=== PATIENT | male | born 1985 | race Caucasian/White ===

== ENCOUNTER 2016-10-09 09:55 | Outpatient (CLI) ==
[2016-10-04 11:55] VITALS: BMI 48.9
--- NOTE | 2016-10-09 10:40 | CT ---
EXAM: CT Abdomen without contrast. CT Pelvis without contrast. HISTORY: Upper abdominal pain. Fever. COMPARISON: 09/01/2016. TECHNIQUE: Multiple axial images of the abdomen and pelvis were obtained without intravenous contra st. Images were reformatted in the coronal plane. FINDINGS: Please note that evaluation of the abdominal and pelvic structures is limited due to lack of intravenous contrast. Lung bases are clear. No acute osseous abnormality identified. The liver is enlarged and diffusely low density. The gallbladder, pancreas, spleen, and adrenal gla nds demonstrate normal contour. No calcified renal stones, hydronephrosis or perinephric inflammati on identified. The bowel is normal in course and caliber without evidence for obstruction or inflammatory process. The appendix is normal. Diverticula are present in the colon. Fat-containing umbilical hernia is present. Urinary bladder is unremarkable. Uterus is absent. Small fat-containing left inguinal he rnia noted. IMPRESSION: 1. No acute abnormality in the abdomen or pelvis. 2. Hepatomegaly with fatty infiltration. 3. Mild diverticulosis. 4. Containing umbilical hernia.
[2016-10-09 10:59] LABS: ALBUMIN 3.9 g/dL (3.4-5.0); ALBUMIN/GLOBULIN RATIO 1.22; ANION GAP 14.8; BILIRUBIN,TOTAL 0.51 mg/dL (0.00-1.20); BUN/CREATININE RATIO 18.97; CALCIUM 9.3 mg/dL (8.2-10.2); CREATININE 1.37 mg/dL (0.60-1.10); POTASSIUM 4.8 mmol/L (3.5-5.1); TOTAL PROTEIN 7.1 g/dL (6.4-8.2)
[2016-10-10 14:24] LABS: ANTI-NUCLEAR ANTIBODY SCREEN Negative (Negative)
== END 2016-10-09 09:56 | disposition home or self-care (01) ==
LOC: RAD 09:55
PROVIDERS: ATTEND Nurse Practitioner Family
DX: R50.9 Fever, unspecified (principal); R10.84 Generalized abdominal pain; R19.7 Diarrhea, unspecified
CPT/HCPCS: 36415; 80053; 80074; 82150; 83690; 86038; 86664

== ENCOUNTER 2016-12-09 09:59 | Day surgery (SDC) ==
[2016-10-04 11:55] VITALS: BMI 48.9
[2016-12-09] MEDS ORDERED: LIDOCAINE 1% 20 ML MDV ONE (10:15)
[2016-12-09] MEDS ORDERED: LIDOCAINE 1% 20 ML MDV ID ONE (10:15)
[2016-12-09] MEDS ORDERED: LIDOCAINE HCL 2% LUER-JET ONE (10:25)
[2016-12-09] MEDS ORDERED: VERSED ONE (10:25)
[2016-12-09] MEDS ORDERED: DIPRIVAN 20 ML VIAL IVP ONE (10:25)
[2016-12-09] MEDS ORDERED: SUBLIMAZE ONE (10:25)
[2016-12-09 11:21] VITALS: BP 116/70; TEMP 98.1
--- NOTE | 2016-12-10 10:08 | OP ---
PROCEDURE: EGD (ESOPHAGOGASTRODUODENOSCOPY) WITH BIOPSY. ENDOSCOPIST: Erin BOLTON M.D. INDICATION: Midupper gastric pain INSTRUMENT: GIFH-190. MEDICATION: PER ANESTHESIA. PROCEDURE: The patient was positioned for endoscopy. The oropharynx was sprayed with Cetacaine spray and the endoscope was advanced through the bite block into the esophagus and from there advanced to the duodenum. The duodenum was normal. The pylorus was patent. The antrum is normal. We took biopsies Helicobacter. Retro flex exam reveals normal cardiac. The Z-line was at 40cm. The esophagus with otherwise normal. He tolerated the procedure without immediate complication. PLAN: 1. Continue current medications. CC: Dr. Brittany BENJAMIN
--- NOTE | 2016-12-10 10:09 | OP ---
PROCEDURE: COLONOSCOPY TO CECUM WITH COLD SNARE POLYPECTOMY. ENDOSCOPIST: Erin BOLTON M.D. INDICATION: Blood from rectum. INSTRUMENT: PCFH-190. MEDICATION: PER ANESTHESIA. PROCEDURE: The patient was positioned for colonoscopy. The digital rectal exam was negative. The colonoscope was inserted through the anus and advanced to the cecum. The cecum was identified using the ileocecal valve and the appendiceal orifice as landmarks. The scope was slowly withdrawn through an adequately prepped colon. In the transverse colon a 5mm polyp is removed using cold snare polypectomy. No evidence for diverticulitis on this exam. Retroflex exam with minimal external hemorrhoids. He tolerated the procedure without immediate complication. Withdrawal time 6 minutes and 12 seconds. PLAN: 1. Suggest repeat colonoscopy in 5 years CC: Dr. Brittany BENJAMIN
== END 2016-12-09 11:40 | disposition home or self-care (01) ==
LOC: SURG 09:59
PROVIDERS: ATTEND Internal Medicine Gastroenterology
DX: K62.5 Hemorrhage of anus and rectum (principal); R10.10 Upper abdominal pain, unspecified; D12.3 Benign neoplasm of transverse colon; K64.4 Residual hemorrhoidal skin tags; E11.9 Type 2 diabetes mellitus without complications
CPT/HCPCS: 82962; 87339

== ENCOUNTER 2017-02-14 10:12 | Outpatient (CLI) ==
[2016-10-04 11:55] VITALS: BMI 48.9
[2017-02-14 10:33] LABS: BASOPHILS % (AUTO) 0.4 % (0.0-3.0); EOSINOPHILS # (AUTO) 0.4 K/ul (0.0-0.7); EOSINOPHILS % (AUTO) 4.9 % (0.0-7.0); HEMATOCRIT 38.9 % (42.0-52.0); HEMOGLOBIN 13.2 g/dl (14.0-18.0); IMMATURE GRANULOCYTE % (AUTO) 0.3 % (0.0-5.0); LYMPHOCYTES # (AUTO) 1.4 K/uL (0.60-3.4); MEAN CORPUSCULAR HEMOGLOBIN 29.4 pg (27.0-31.0); MEAN CORPUSCULAR HGB CONC 33.9 (31.8-35.4); MEAN CORPUSCULAR VOLUME 86.6 fl (80.0-94.0); MONOCYTES # (AUTO) 0.4 K/uL (0.4-2.0); NEUTROPHILS # (AUTO) 4.9 K/ul (2.0-6.9); NEUTROPHILS % (AUTO) 69.4; PLATELET COUNT 217 10^3/uL (140-440); RED BLOOD COUNT 4.49 10^6/ul (4.70-6.10); WHITE BLOOD COUNT 7.11 K/ul (4.2-10.2)
[2017-02-14 11:02] LABS: ALBUMIN 3.5 g/dL (3.4-5.0); ALBUMIN/GLOBULIN RATIO 1.09; ANION GAP 10.1; BILIRUBIN,TOTAL 0.2 mg/dL (0.00-1.20); CALCIUM 8.9 mg/dL (8.2-10.2); CHOL/HDL RATIO 6.7 (4.5-6.4); POTASSIUM 4.1 mmol/L (3.5-5.1); TOTAL PROTEIN 6.7 g/dL (6.4-8.2)
== END 2017-02-14 10:13 | disposition home or self-care (01) ==
LOC: LAB 10:12
PROVIDERS: ATTEND Nurse Practitioner Family
DX: E11.9 Type 2 diabetes mellitus without complications (principal); E78.5 Hyperlipidemia, unspecified; E78.1 Pure hyperglyceridemia; I10 Essential (primary) hypertension; E66.9 Obesity, unspecified
CPT/HCPCS: 36415; 80053; 80061; 83036; 84443; 85025

== ENCOUNTER 2017-02-22 12:49 | Emergency (ER) ==
[2017-02-22 12:57] VITALS: TEMP 98.8; BMI 46.5
[2017-02-22 13:27] VITALS: BP 150/89
--- NOTE | 2017-02-22 14:03 | ED.PDOC ---
General ED Provider: Dr. YASMIN MADRID Chief Complaint: Tooth Problem Stated Complaint: Patient is a 31 year old c/o pain to left lower jaw. states he has a tooth that has broken off and thought it was abscessed so went to the clinic 02/14/16 and was placed on clindamycin. patient states yesterday started having more swelling around the tooth. Time Seen by Physician: 13:30 Mode of Arrival: Walk-In Information Source: Patient Exam Limitations: No limitations [facility] Nursing and Triage Documentation Reviewed and Agree: Yes EENT Complaint Exam - Dental/Oral Complaint/Exam Mechanism of Injury: No known trauma Onset/Duration: 1 week Symptoms Are: Still present Timing: Constant Initial Severity: Moderate Current Severity: Severe Location: Left lower jaw Character: Reports: Dull, Aching, Throbbing Aggravating: Reports: Heat, Cold, Chewing Alleviating: Reports: None Associated Signs and Symptoms: Reports: Swelling Related History: Reports: Similar episode Cardiac Risk Factors: Reports: None Dental/Oral Surgical History: Reports: Third Molar Extractions Tooth Findings: Present: Gross decay Cervical Lymphadenopathy Present: Yes (left ) Facial Swelling Present: Yes (left jaw ) Bleeding Present: No Oropharynx Findings: Absent: Clots, Active bleeding Septal Hematoma: No Foreign Body Present: No Dysphagia Present: No Drooling Present: No Asymmetrical Tonsillar Swelling Present: No Uvula Midline: No Alexandra-tonsillar Fluctuence: No Trismus Present: No Palatal Petechiae Present: No Teeth Picture: 1 - dental caries Differential Diagnoses: Dental Abcess, Dental Caries, Fractured Tooth, Gingivitis Review of Systems - Review Of Systems Constitutional: Reports: No symptoms Eyes: Reports: No symptoms Ears, Nose, Mouth, Throat: Reports: Mouth pain Respiratory: Reports: No symptoms Cardiac: Reports: No symptoms GI: Reports: No symptoms : Reports: No symptoms Musculoskeletal: Reports: No symptoms Skin: Reports: No symptoms Neurological: Reports: No symptoms Endocrine: Reports: No symptoms Hematologic/Lymphatic: Reports: No symptoms All Other Systems: Reviewed and Negative Past Medical History - Past Medical History Previously Healthy: Yes Endocrine: Reports: None Cardiovascular: Reports: Hypertension Respiratory: Reports: None Hematological: Reports: None Gastrointestinal: Reports: None Genitourinary: Reports: None Neuro/Psych: Reports: Depression Musculoskeletal: Reports: Gout Cancer: Reports: None Other Pertinent Past Medical History: obesity - Surgical History General Surgical History: Reports: Unknown - Family History Family History: Reports: Unknown - Social History Smoking Status: Former smoker Hx Substance Use: No Alcohol Screening: None Physical Exam - Physical Exam Appearance: Obese Pain Distress: Moderate Eyes: YONG, EOMI, Conjunctiva clear ENT: Ears normal, Nose normal, Oropharynx normal Neck: Supple Respiratory: Airway patent, Breath sounds clear, Breath sounds equal, Respirations nonlabored Cardiovascular: RRR, Pulses normal, No rub, No murmur Skin: Warm, Dry Psychiatric: Anxious Critical Care Note - Critical Care Note Total Time (mins): 0 Course - Course Vital Signs: Temp Pulse Resp BP Pulse Ox 02/22/17 13:27 150/89 H 02/22/17 12:50 98.8 F 67 16 160/108 H 96 Departure - Departure Time of Disposition: 14:02 Disposition: HOME SELF-CARE Discharge Problem: Toothache, Dental abscess Instructions: Dental Abscess (ED) Condition: Fair Pt referred to PMD for follow-up: Yes Additional Instructions: Keep APT with the Dentist. Follow up with PCP in 3 days if not better. Prescriptions: Doxycycline Hyclate 100 mg PO BID #14 capsule Allergies/Adverse Reactions: Allergies Penicillins Adverse Reaction (Verified 02/22/17 12:54) Sulfa (Sulfonamide Antibiotics) Adverse Reaction (Verified 02/22/17 12:54) Home Medications: Ambulatory Orders Multivitamin/Iron/Folic Acid [Multi Complete-Iron Tablet] 1 each PO d 08/15/16 Acetaminophen [Pain Relief Extra Strength] 500 - 1,000 mg PO Q6H PRN 09/01/16 Sumatriptan Succinate 50 mg PO BID PRN 10/04/16 Topiramate [Topamax] 100 mg PO BID 10/04/16 Hydrocodone/Acetaminophen [[place] 7.5-325 Tablet] 1 each PO TID 10/08/16 Allopurinol 20 mg PO BID 12/06/16 Omeprazole [Prilosec] 20 mg PO ONCE 12/06/16 Doxycycline Hyclate 100 mg PO BID #14 capsule 02/22/17 Disposition Discussed With: Patient, Family
== END 2017-02-22 14:17 | disposition home or self-care (01) ==
LOC: ED 12:49
DX: K04.7 Periapical abscess without sinus (principal); K02.7 Dental root caries; I10 Essential (primary) hypertension
CPT/HCPCS: 99282

== ENCOUNTER 2017-05-31 01:05 | Emergency (ER) ==
[2017-05-31 01:11] VITALS: BP 156/83; TEMP 98.1; BMI 47.9
--- NOTE | 2017-05-31 01:27 | ED.PDOC ---
General ED Provider: Dr. MICHELLE GOLDBERG-ER Chief Complaint: Eye Problem Stated Complaint: my eye is red and its draining yellow stuff Time Seen by Physician: 01:25 Mode of Arrival: Walk-In Information Source: Patient Exam Limitations: No limitations [facility] and Triage Documentation Reviewed and Agree: Yes EENT Complaint Exam - Eye Complaint/Exam Onset/Duration: 24hrs Symptoms Are: Still present Timing: Intermittent Initial Severity: Mild Current Severity: Mild Location: Right Character: Reports: Dull. Denies: Foreign body sensation Aggravating: Reports: None Alleviating: Reports: None Associated Signs and Symptoms: Reports: Purulent drainage. Denies: Photophobia , Clear drainage, Vision impairment, Fever, Swelling Related History: Denies: Foreign body, Trauma, Glaucoma, Environmental, Meds used, Drops used Eye Surgical History: Reports: None Penetrating Injury Risk Factors: None Globe Rupture Risk Factors: None Acute Glaucoma Risk Factors: Diabetes Optic Artery Occlusion Risk Factors: None Visual Field: Normal Extraocular Movement: Normal Orbit Findings: Normal Globe Findings: Intact Lid Findings: Normal Conjunctival Findings: Red, Exudate Corneal Findings: Clear Fundi: Normal Slit Lamp Used: No Differential Diagnoses: Conjunctivitis Review of Systems - Review Of Systems Constitutional: Reports: No symptoms Eyes: Reports: Drainage, Pain, Glasses. Denies: Contact lenses Ears, Nose, Mouth, Throat: Reports: No symptoms Respiratory: Reports: No symptoms Cardiac: Reports: No symptoms GI: Reports: No symptoms : Reports: No symptoms Musculoskeletal: Reports: No symptoms Skin: Reports: No symptoms Neurological: Reports: No symptoms Endocrine: Reports: No symptoms Hematologic/Lymphatic: Reports: No symptoms All Other Systems: Reviewed and Negative Past Medical History - Past Medical History Previously Healthy: Yes Endocrine: Reports: None Cardiovascular: Reports: Hypertension Respiratory: Reports: None Hematological: Reports: None Gastrointestinal: Reports: None Genitourinary: Reports: None Neuro/Psych: Reports: Depression Musculoskeletal: Reports: Gout Cancer: Reports: None Other Pertinent Past Medical History: obesity - Surgical History General Surgical History: Reports: Unknown - Family History Family History: Reports: Unknown - Social History Smoking Status: Former smoker Hx Substance Use: No Alcohol Screening: None Lives: With family - Immunizations Tetanus Shot up to Date: Yes Physical Exam - Physical Exam Appearance: Well-appearing, No pain distress, Well-nourished Eyes: Conjunctiva inflammed ENT: Ears normal, Nose normal, Oropharynx normal Neck: Supple Respiratory: Airway patent, Breath sounds clear, Breath sounds equal, Respirations nonlabored Cardiovascular: RRR, Pulses normal, No rub, No murmur GI/: Soft, Nontender, No masses, Bowel sounds normal, No Organomegaly Musculoskeletal: Normal strength Skin: Warm Neurological: Sensation intact Psychiatric: Affect appropriate, Mood appropriate Critical Care Note - Critical Care Note Total Time (mins): 0 Course - Course Vital Signs: Temp Pulse Resp BP Pulse Ox 05/31/17 01:06 98.1 F 78 20 156/83 H 97 Departure - Departure Time of Disposition: Disposition: HOME SELF-CARE Discharge Problem: Acute conjunctivitis Qualifiers: Acute conjunctivitis type: unspecified Laterality: right Qualifier Code: ( H10.31) Unspecified acute conjunctivitis, right eye Instructions: Conjunctivitis (ED) Condition: Good Pt referred to PMD for follow-up: Yes Additional Instructions: ciloxan eye drops 1 drop into the eye tid x 7days--warm washcloths q 2hrs as needed--see eye doctor if not better in 48hrs Allergies/Adverse Reactions: Allergies Penicillins Adverse Reaction (Unverified 05/31/17 01:11) Sulfa (Sulfonamide Antibiotics) Adverse Reaction (Unverified 05/31/17 01:11) Home Medications: Ambulatory Orders Multivitamin/Iron/Folic Acid [Multi Complete-Iron Tablet] 1 each PO d 08/15/16 Sumatriptan Succinate 50 mg PO BID PRN 10/04/16 Topiramate [Topamax] 100 mg PO BID 10/04/16 Hydrocodone/Acetaminophen [[place] 7.5-325 Tablet] 1 each PO TID 10/08/16 Omeprazole [Prilosec] 20 mg PO ONCE 12/06/16 Doxycycline Hyclate 100 mg PO BID #14 capsule 02/22/17 Disposition Discussed With: Patient
== END 2017-05-31 01:35 | disposition home or self-care (01) ==
LOC: ED 01:05
DX: H10.31 Unspecified acute conjunctivitis, right eye (principal)
CPT/HCPCS: 99282

== ENCOUNTER 2017-12-23 09:44 | Outpatient (CLI) | END 2017-12-23 09:45 | disposition home or self-care (01) | LOC: RHC-LAB 09:44 | PROVIDERS: ATTEND Nurse Practitioner Family | DX: E11.9 Type 2 diabetes mellitus without complications (principal); E78.1 Pure hyperglyceridemia; E78.5 Hyperlipidemia, unspecified; E66.9 Obesity, unspecified | CPT/HCPCS: 36415; 80053; 80061; 83036; 85025 ==

== ENCOUNTER 2017-12-25 08:59 | Outpatient (CLI) ==
--- NOTE | 2017-12-25 13:14 | MRI ---
EXAM: MRI of the right knee without contrast COMPARISON: Right knee radiographs 05/19/2008. HISTORY: Right knee pain and popping. No known injury. TECHNIQUE: Multiplanar noncontrast MR images of the right knee were acquired using a 1.2 Neida magne t. FINDINGS: Correlation with more recent radiographs of the right knee is recommended. The medial and lateral menisci are intact without evidence of a surfacing meniscal tear. No parameni scal cyst. The anterior and posterior cruciate ligaments are intact. There is some scarring related to a chroni c sprain of the medial collateral ligament at its femoral attachment with intact fibers identified. The lateral collateral ligament complex and posterolateral corner ligaments are intact. Minimal mo llar/quadriceps tendinosis. No abnormal subluxation of the patella. There is subcutaneous edema and ill-defined subcutaneous fluid which is most pronounced anteriorly and medially without a focal drai nable fluid collection. No discrete soft tissue ulcer identified. There is heterogeneous signal involving the cartilage of the patella consistent with chondromalacia p atella with mild thinning fibrillation of the cartilage and question of minimal blistering of the car tilage along the junction of the lateral facet median ridge. No full-thickness cartilage defect. No evidence of an acute fracture or osteomyelitis. Trace joint effusion. No popliteal cyst or osteoch ondral body. No soft tissue mass identified. IMPRESSION: 1. Chondromalacia/patellar chondrosis as described. 2. Trace joint effusion. 3. Intact menisci. 4. Minimal scarring related to a chronic sprain of the medial collateral ligament. 5. Minimal patellar/quadriceps tendinosis. Subcutaneous edema anteromedially without a drainable fl uid collection.
== END 2017-12-25 09:00 | disposition home or self-care (01) ==
LOC: RAD 08:59
PROVIDERS: ATTEND Nurse Practitioner Family
DX: M25.561 Pain in right knee (principal); R20.0 Anesthesia of skin; R29.898 Other symptoms and signs involving the musculoskeletal system

== ENCOUNTER 2018-03-03 08:03 | Outpatient (CLI) ==
--- NOTE | 2018-03-03 10:38 | MRI ---
EXAM: MRI thoracic spine without IV contrast. DATE: 03 Mar 2018. HISTORY: Thoracic back pain. TECHNIQUE: Sagittal and axial T2W and T1W sequences of the thoracic spine along with sagittal IR and coronal T2W sequences were obtained using 1.2 Neida magnet. No IV contrast. Note: Grainy appearance on most sequences significantly limits the sensitivity of this exam. COMPARISON: MRI T-spine 28 Feb 2016 and 02/14/2016. CT abdomen/pelvis 09 October 2016. FINDINGS: Sagittal counting estimator printing sequence of the cervical and upper thoracic spine reveals slight r eversal cervical lordosis. No acute c-spine fracture, subluxation, osseous malignancy, or jumped fac et is evident. Cervical vertebra are normal in height. Bone marrow signal is overall normal. No ce rvical disc protrusion, cord compression, or definitive central canal stenosis is observed. There is no Chiari 1 malformation. No distinct neck mass or cervical lymphadenopathy is demonstrated. There are 12 thoracic vertebra with paired ribs. There is no thoracic scoliosis. No acute T-spine fr acture, subluxation, osseous malignancy, or jumped facet is apparent. Thoracic vertebra are normal i n height. Small osteophytes are visible at the mid thoracic spine. Thoracic intervertebral discs ar e normal in height. Disc desiccation is evident at T8-9. Bone marrow signal is normal. Conus medul silvana terminates at L1. No definitive cord edema, neoplasm, or myelomalacia is seen. There is no de finitive syrinx; however, images are suboptimal to exclude a syrinx. No acute rib fracture, rib lesion, paraspinal mass, or chest wall malignancy is identified. Visible portion of the trachea, thyroid gland, thoracic esophagus, and thoracic aorta are normal. No suspici ous lung mass, pneumonia, or pleural effusion is detected. Visible portions of the liver, spleen, ad renal glands and kidneys are revealed no neoplasm. Right lobe liver is approximately 18.2 cm in josé manuel th. Spleen is approximately 14.4 cm in length. Segmental analysis: C7-T1: Normal. T1-2: Normal. T2-3: Normal. T3-4: Normal. T4-5: Tiny posterior midline disc protrusion (1 mm AP x 1 mm transverse) does not contact the cord o r cause central stenosis. Each foramen is patent. T5-6: Normal. T6-7: Normal. T7-8: Minor posterior disc bulge slightly flattens the cord anteriorly and causes mild central canal stenosis. T8-9: Minor posterior disc bulge does not contact the cord at rest, but does cause mild central judith l stenosis. Mild/moderate right foraminal narrowing is due to facet arthropathy. T9-10: Minor posterior disc bulge does not contact the cord at rest, but does cause mild central can al stenosis. Minor bilateral foraminal narrowing is due to minor facet arthropathy. T10-11: Normal, except for minor right and mild left foraminal stenoses due to mild facet arthropath y. T11-12: Normal, except for minor left foraminal narrowing due to minor facet arthropathy. T12-L1: Normal. IMPRESSIONS: 1. Thoracic spine minor spondylosis, mild facet arthropathy, and mild DDD. 2. No definitive thoracic cord syrinx or lesion; however, images are suboptimal for evaluation of th e spinal cord. 3. Mild central canal stenoses at T7-8, T8-9, and T9-10. 4. Multilevel thoracic foraminal narrowing (denis. right T8-9). 5. Hepatosplenomegaly - likely due to hepatic steatosis.
== END 2018-03-03 08:04 | disposition home or self-care (01) ==
LOC: RAD 08:03
PROVIDERS: ATTEND Nurse Practitioner Family
DX: M54.6 Pain in thoracic spine (principal); M54.9 Dorsalgia, unspecified; G89.29 Other chronic pain; Z92.241 Personal history of systemic steroid therapy

== ENCOUNTER 2018-03-26 08:56 | Outpatient (CLI) | END 2018-03-26 08:57 | disposition home or self-care (01) | LOC: RHC-LAB 08:56 | PROVIDERS: ATTEND Nurse Practitioner Family | DX: E11.9 Type 2 diabetes mellitus without complications (principal); Z12.5 Encounter for screening for malignant neoplasm of prostate | CPT/HCPCS: 36415; 80053; 80061; 83037 ==

== ENCOUNTER 2018-05-26 16:03 | Outpatient (CLI) | END 2018-05-26 16:04 | disposition home or self-care (01) | LOC: RHC-LAB 16:03 | PROVIDERS: ATTEND Nurse Practitioner Family | DX: R10.9 Unspecified abdominal pain (principal); R10.817 Generalized abdominal tenderness; R11.0 Nausea; R19.5 Other fecal abnormalities | CPT/HCPCS: 36415; 80053; 82150; 83690; 85025; 86677 ==

== ENCOUNTER 2018-05-29 07:55 | Outpatient (CLI) ==
--- NOTE | 2018-05-29 08:42 | CT ---
EXAM: CT of the abdomen pelvis without contrast History: Left-sided abdominal pain. Comparison: CT abdomen pelvis 10/09/2016 Technique: Multiplanar CT images through the abdomen pelvis were obtained without the administration of IV contrast Findings: Lung bases are clear. No acute osseous abnormalities. The liver is fatty. No discrete gallstones identified by CT. No focal liver or splenic lesions. Th e liver and spleen are mildly enlarged. No renal stones and no hydronephrosis. The appendix is norm al. No ureteral calculi. No peripancreatic inflammation. Adrenal glands are unremarkable. Small f at-containing umbilical hernia again noted. No bowel obstruction. No bladder wall thickening. Pros robbins is not enlarged. No free air and no ascites. Fat-containing right inguinal hernia. Mild colon ic diverticulosis. Impression: 1. No acute intra-abdominal or pelvic process. 2. Mild colonic diverticulosis. 3. Hepatic steatosis. 4. Mild hepatomegaly.
== END 2018-05-29 07:56 | disposition home or self-care (01) ==
LOC: RAD 07:55
PROVIDERS: ATTEND Nurse Practitioner Family
DX: R10.9 Unspecified abdominal pain (principal); R10.817 Generalized abdominal tenderness; R11.0 Nausea; R19.5 Other fecal abnormalities

== ENCOUNTER 2018-10-27 11:45 | Outpatient (CLI) | END 2018-10-27 11:46 | disposition home or self-care (01) | LOC: RHC-LAB 11:45 → FCC-LAB 11:46 | PROVIDERS: ATTEND Family Medicine | DX: R79.89 Other specified abnormal findings of blood chemistry (principal); I10 Essential (primary) hypertension; E11.9 Type 2 diabetes mellitus without complications | CPT/HCPCS: 36415; 80053; 82043; 83036; 85025 ==

== ENCOUNTER 2018-11-18 14:28 | Outpatient (CLI) | END 2018-11-18 14:29 | disposition home or self-care (01) | LOC: CAR 14:28 | PROVIDERS: ATTEND Psychiatry & Neurology Sleep Medicine | DX: G47.33 Obstructive sleep apnea (adult) (pediatric) (principal); M10.9 Gout, unspecified; I10 Essential (primary) hypertension; M54.9 Dorsalgia, unspecified; G89.29 Other chronic pain | CPT/HCPCS: 95811 ==

== ENCOUNTER 2019-01-25 14:03 | Outpatient (CLI) ==
--- NOTE | 2019-01-25 15:09 | DI ---
EXAM: CHEST FRONTAL AND LATERAL VIEWS HISTORY: Acute upper respiratory infection. COMPARISON: 08/01/2016 FINDINGS: Heart size and mediastinal contour remain within normal limits. No acute infiltrates. Normal vascularity with no pleural fluid or pneumothorax. The bony thorax has no acute finding. IMPRESSION: No acute process.
== END 2019-01-25 14:04 | disposition home or self-care (01) ==
LOC: RAD 14:03
PROVIDERS: ATTEND Family Medicine
DX: J06.9 Acute upper respiratory infection, unspecified (principal)

== ENCOUNTER 2019-03-22 11:47 | Inpatient (IN) ==
[2019-03-22] MEDS: SODIUM CHLORIDE 1,000 ML IV STA ×2 (13:22→17:59)
[2019-03-22] MEDS ORDERED: K-DUR PO STA (13:50)
--- NOTE | 2019-03-22 14:30 | CT ---
EXAM: CT of the abdomen pelvis without contrast History: Bilateral flank pain and abdominal pain. Comparison: CT abdomen pelvis 05/29/2018 Technique: Multiplanar CT images through the abdomen pelvis were obtained without the administration of IV contrast Findings: Lung bases are clear. No acute osseous abnormalities. Fatty liver. No gallstones identi fied by CT. Spleen is unremarkable. The appendix is normal. No renal stones and no hydronephrosis. No ureteral calculi. No peripancreatic inflammation. Adrenal glands are unremarkable. No bladder wall thickening. There is mild wall thickening of the colon which is filled with fluid. Prostate i s not enlarged. No free air and no ascites. No abdominal aortic aneurysm. No pathologically enlarg ed lymph nodes. Small fat-containing umbilical hernia Impression: 1. Mild pancolitis. Etiology is most likely infectious or inflammatory. 2. Hepatic steatosis
[2019-03-22] MEDS ORDERED: LEVAQUIN 500 MG in PREMIX 100 ML D5W 1 BAG IV STA (14:31)
--- NOTE | 2019-03-22 14:31 | ED.PDOC ---
General ED Provider: Dr. EDU ZAMORA Chief Complaint: Back Pain Stated Complaint: low back flu like symptoms diarrhea Time Seen by Physician: 12:00 (seen with cherie at all times ) Mode of Arrival: Walk-In Information Source: Patient Exam Limitations: No limitations Primary Care Provider: MARLON JOHNSON Nursing and Triage Documentation Reviewed and Agree: Yes Does patient meet sepsis criteria?: No If yes, has appropriate treatment been initiated?: No System Inflammatory Response Syndrome: Not Applicable Sepsis Protocol: For patient's 13 years and over: Temp is 96.8 and below OR 101 and greater Pulse >90 BPM Resp >20/minute Acutely Altered Mental Status Are patient's symptoms suggestive of a new infection, such as: -Pneumonia -Skin, Soft Tissue -Endocarditis -UTI -Bone, Joint Infection -Implantable Device -Acute Abdominal Infection -Wound Infection -Meningitis -Blood Stream Catheter Infection -Unknown Musculoskeletal Complaint Exam - Back Pain Complaint/Exam Mechanism of Injury: Reports: No known trauma Onset/Duration: 1 day Symptoms Are: Still present Timing: Intermittent Episodes Lasting: Hours Initial Severity: Mild Current Severity: Mild Location: Reports: Discrete Character: Reports: Aching Aggravating: Reports: Movements Alleviating: Reports: Rest Associated Signs and Symptoms: Reports: Fever, Flank pain (right). Denies: Swelling, Redness, Bruising, Weakness, Numbness, Tingling, Abdominal pain, Bladder incontinence, Bowel incontinence, Weight loss, Pain with weight bearing TAD Risk Factors: Reports: None AAA Risk Factors: Reports: None Cauda Equina Risk Factors: Reports: None Epidural Abcess Risk Factors: Reports: Fever Related Surgical History: Reports: None Focal Tenderness: No Paraspinal Muscle Tenderness: No Paraspinal Muscle Spasm: No Scoliosis: No Lordosis: No Kyphosis: No SLR Test: Right Negative, Left Negative Hip Motion Testing Pain: Right Negative, Left Negative Focal Weakness: Present: None Focal Sensory Loss: Present: None Gait: Present: Normal Differential Diagnoses: Arthritis, Renal Colic, Strain, Sprain Review of Systems - Review Of Systems Constitutional: Reports: Fever, Malaise, Loss of appetite Eyes: Reports: No symptoms Ears, Nose, Mouth, Throat: Reports: No symptoms Respiratory: Reports: No symptoms Cardiac: Reports: No symptoms GI: Reports: Abdominal pain, Diarrhea (NO BALCK OR BLOODY STOOL), Poor appetite : Reports: No symptoms Musculoskeletal: Reports: Back pain Skin: Reports: No symptoms Neurological: Reports: No symptoms Endocrine: Reports: No symptoms Hematologic/Lymphatic: Reports: No symptoms All Other Systems: Reviewed and Negative Past Medical History - Past Medical History Previously Healthy: Yes Endocrine: Reports: None Cardiovascular: Reports: Hypertension Respiratory: Reports: None Hematological: Reports: None Gastrointestinal: Reports: None Genitourinary: Reports: None Neuro/Psych: Reports: Depression Musculoskeletal: Reports: Gout Cancer: Reports: None Other Pertinent Past Medical History: obesity - Surgical History General Surgical History: Reports: Unknown - Family History Family History: Reports: Unknown - Social History Smoking Status: Former smoker Hx Substance Use: No Alcohol Screening: None - Immunizations Tetanus Shot up to Date: No Physical Exam - Physical Exam Appearance: Well-appearing, No pain distress, Well-nourished Eyes: YONG, EOMI, Conjunctiva clear ENT: Ears normal, Nose normal, Oropharynx normal Respiratory: Airway patent, Breath sounds clear, Breath sounds equal, Respirations nonlabored Cardiovascular: RRR, Pulses normal, No rub, No murmur GI/: Soft, Nontender, No masses, Bowel sounds normal, No Organomegaly Musculoskeletal: Normal strength, ROM intact, No edema, No calf tenderness Skin: Warm, Dry, Normal color Neurological: Sensation intact, Motor intact, Reflexes intact, Cranial nerves intact, Alert, Oriented Psychiatric: Affect appropriate, Mood appropriate Critical Care Note - Critical Care Note Total Time (mins): 0 Course - Course Hematology/Chemistry: 03/24/19 05:00 03/24/19 05:00 Orders, Labs, Meds: Lab Review 03/22/19 03/22/19 03/22/19 12:30 12:43 12:43 WBC 11.71 H RBC 4.49 L Hgb 13.0 L Hct 38.9 L MCV 86.6 MCH 29.0 MCHC 33.4 RDW Coeff of Miguel Angel 13.2 Plt Count 209 Immature Gran % (Auto) 0.3 Neut % (Auto) 86.2 Lymph % (Auto) 6.0 L Bell % (Auto) 6.9 Eos % (Auto) 0.3 Baso % (Auto) 0.3 Immature Gran # (Auto) 0.0 Neut # (Auto) 10.1 H Lymph # (Auto) 0.7 Bell # (Auto) 0.8 Eos # (Auto) 0.0 Baso # (Auto) 0.0 Sodium 135.0 Potassium 3.29 L Chloride 101.6 Carbon Dioxide 20.7 L Anion Gap 15.99 BUN 12.7 Creatinine 1.21 H Estimated GFR (MDRD) 68.00 BUN/Creatinine Ratio 10.49 Glucose 172.8 H Hemoglobin A1c Lactic Acid Calcium 9.33 Total Bilirubin 0.59 AST 12.2 L ALT 23.7 Alkaline Phosphatase 51.2 Total Protein 7.10 Albumin 4.20 Globulin 2.90 Albumin/Globulin Ratio 1.44 Procalcitonin Urine Color Yellow Urine Clarity Clear Urine pH 5.0 Ur Specific [place] >=1.030 Urine Protein Negative Urine Glucose (UA) Negative Urine Ketones Negative Urine Blood Negative Urine Nitrite Negative Urine Bilirubin Negative Urine Urobilinogen 0.2 Ur Leukocyte Esterase Negative 03/22/19 03/22/19 03/22/19 12:43 12:43 12:43 WBC RBC Hgb Hct MCV MCH MCHC RDW Coeff of Miguel Angel Plt Count Immature Gran % (Auto) Neut % (Auto) Lymph % (Auto) Bell % (Auto) Eos % (Auto) Baso % (Auto) Immature Gran # (Auto) Neut # (Auto) Lymph # (Auto) Bell # (Auto) Eos # (Auto) Baso # (Auto) Sodium Potassium Chloride Carbon Dioxide Anion Gap BUN Creatinine Estimated GFR (MDRD) BUN/Creatinine Ratio Glucose Hemoglobin A1c 6.74 H Lactic Acid 1.94 Calcium Total Bilirubin AST ALT Alkaline Phosphatase Total Protein Albumin Globulin Albumin/Globulin Ratio Procalcitonin 0.29 Urine Color Urine Clarity Urine pH Ur Specific [place] Urine Protein Urine Glucose (UA) Urine Ketones Urine Blood Urine Nitrite Urine Bilirubin Urine Urobilinogen Ur Leukocyte Esterase Orders Category Date Time Status EKG-(IP & OP ONLY) DAILY CARDIO 03/23/19 06:00 Completed EKG-(IP & OP ONLY) DAILY CARDIO 03/24/19 06:00 Completed EKG-(IP & OP ONLY) DAILY CARDIO 03/25/19 06:00 Ordered ACTIVITY .Complete BR CARE 03/22/19 15:01 Completed BLOOD GLUCOSE MONITORING ACHS CARE 03/22/19 15:05 Active GIVE HS SNACK 2100 CARE 03/22/19 15:05 Active NPO REMINDER: IMAGING ONCE CARE 03/22/19 12:23 Completed Neuro Check [NEUROLOGICAL CHECKS] Q4HR CARE 03/22/19 15:06 Completed ADA 1800 IVETTE. DIET DIETARY 03/22/19 Dinner Ordered HS SNACK DIETARY 03/22/19 Dinner Ordered BLOOD CULTURE (ED ONLY) Stat LAB 03/22/19 12:43 Results CBC W/ AUTO DIFF DAILY@0600 LAB 03/23/19 05:00 Completed CBC W/ AUTO DIFF DAILY@0600 LAB 03/24/19 05:00 Completed CBC W/ AUTO DIFF Stat LAB 03/22/19 12:43 Completed COMPREHENSIVE METABOLIC PANEL DAILY@0600 LAB 03/23/19 05:00 Completed COMPREHENSIVE METABOLIC PANEL DAILY@0600 LAB 03/24/19 05:00 Completed COMPREHENSIVE METABOLIC PANEL Stat LAB 03/22/19 12:43 Completed LACTIC ACID Stat LAB 03/22/19 12:43 Completed OCCULT BLOOD, STOOL Stat LAB 03/22/19 19:30 Completed PROCALCITONIN Stat LAB 03/22/19 12:43 Completed RAPID STREP SCREEN [MOLECULAR GROUP A STREP] Stat LAB 03/22/19 12:30 Completed URINALYSIS C & S IF INDICATED Stat LAB 03/22/19 12:30 Completed Insulin Regular, Human [Humulin R] MEDS 03/22/19 15:05 Discontinued See Protocol SUBCUT ONCE STA Levofloxacin/D5w [Levaquin] 100 ml MEDS 03/22/19 14:35 Discontinued IV .STK-MED Levofloxacin/D5w [Levaquin] 500 mg MEDS 03/22/19 14:31 Discontinued Premix 100 ml D5w 1 bag IV ONCE Methylprednisolone Sod Succ/Pf [Solu-Medrol 125 mg] MEDS 03/22/19 14:58 Discontinued 250 mg IVP ONCE STA Methylprednisolone Sod Succ/Pf [Solu-Medrol 125 mg] MEDS 03/22/19 21:00 Discontinued 80 mg IVP Q12HR Metoprolol Tartrate [Lopressor] MEDS 03/22/19 21:00 Active 50 mg PO BID Metronidazole/Sodium Chloride [Flagyl 500 mg/100 ml] MEDS 03/22/19 15:00 Active 500 mg Premix 100 ml Ns 1 bag IV Q6HR Potassium Chloride [K-Dur] MEDS 03/22/19 13:50 Discontinued 40 meq PO ONCE STA Sodium Chloride 0.9% [Sodium Chloride] 1,000 ml MEDS 03/22/19 12:26 Discontinued IV 125 mls/hr Sodium Chloride 0.9% [Sodium Chloride] 1,000 ml MEDS 03/22/19 14:32 Discontinued IV BOLUS Sodium Chloride 0.9% [Sodium Chloride] 1,500 ml MEDS 03/22/19 15:30 Discontinued IV 125 mls/hr CT ABD/PEL WO RENAL STONE PROT Stat RADS 03/22/19 12:[address] LUMBAR SPINE W/WO CONTRAST Stat RADS 03/22/19 12:23 Completed Medications Generic Name Dose Route Start Last Admin Trade Name Alejandro PRN Reason Stop Dose Admin Hydrocodone Bitart/Acetaminophen 1 tab 03/23/19 22:00 03/24/19 05:19 [place] 10-325 PO 1 tab Q8HR PRAKASH Administration Ciprofloxacin 500 mg 03/23/19 06:00 03/24/19 05:04 Cipro PO 03/30/19 05:59 500 mg BIDCIPRO PRAKASH Administration Metronidazole 500 mg/ Sodium 100 mls @ 100 mls/hr 03/22/19 15:00 03/24/19 05: 05 Chloride IV 03/25/19 14:59 100 mls/hr Q6HR PRAKASH Administration Sodium Chloride 1,000 mls @ 125 mls/hr 03/23/19 03:00 03/23/19 22:38 Sodium Chloride IV 125 mls/hr .Q8H PRAKASH Administration Insulin Human Regular 0 - 15 unit 03/23/19 07:02 03/24/19 06:01 Humulin R SUBCUT 4 unit PRN PRN Administration Hyperglycemia Protocol Lisinopril 20 mg 03/23/19 09:00 03/24/19 08:46 Zestril PO 20 mg DAILY PRAKASH Administration Methylprednisolone Sodium Succinate 40 mg 03/23/19 09:00 03/24/19 08:47 Solu-Medrol 40 Mg IVP 40 mg Q12HR PRAKASH Administration Metoprolol Tartrate 50 mg 03/22/19 21:00 03/24/19 08:47 Lopressor PO 50 mg BID PRAKASH Administration Topiramate 100 mg 03/22/19 21:00 03/24/19 08:47 Topamax PO 100 mg BID PRAKASH Administration Discontinued Medications Generic Name Dose Route Start Last Admin Trade Name Alejandro PRN Reason Stop Dose Admin Acetaminophen 1,000 mg 03/22/19 15:34 03/22/19 15:49 Tylenol PO 03/22/19 15:35 1,000 mg ONCE STA Administration Enoxaparin Sodium 40 mg 03/22/19 17:30 03/22/19 17:37 Lovenox SUBCUT 40 mg DAILY PRAKASH Administration Sodium Chloride 1,000 mls @ 125 mls/hr 03/22/19 12:26 03/22/19 17:59 Sodium Chloride IV 03/22/19 20:25 125 mls/hr .Q8H STA Administration Levofloxacin/Dextrose 500 mg/ 100 mls @ 100 mls/hr 03/22/19 14:31 03/22/19 14 :38 Dextrose IV 03/22/19 15:30 100 mls/hr ONCE STA Administration Sodium Chloride 1,000 mls @ 1,000 mls/hr 03/22/19 14:32 03/22/19 14:42 Sodium Chloride IV 03/22/19 15:31 1,000 mls/hr BOLUS STA Administration Sodium Chloride 1,500 mls @ 125 mls/hr 03/22/19 15:30 03/22/19 18:21 Sodium Chloride IV Not Given .Q12H [facility] Insulin Human Regular 0 unit 03/22/19 15:05 03/22/19 17:11 Humulin R SUBCUT 03/22/19 15:06 3 unit ONCE STA Administration Protocol Methylprednisolone Sodium Succinate 250 mg 03/22/19 14:58 03/22/19 15:49 Solu-Medrol 125 Mg IVP 03/22/19 14:59 250 mg ONCE STA Administration Methylprednisolone Sodium Succinate 80 mg 03/22/19 21:00 Solu-Medrol 125 Mg IVP Q12HR PRAKASH Methylprednisolone Sodium Succinate 40 mg 03/22/19 21:00 03/22/19 21:07 Solu-Medrol 125 Mg IVP 40 mg Q12HR PRAKASH Administration Potassium Chloride 40 meq 03/22/19 13:50 03/22/19 14:15 K-Dur PO 03/22/19 13:51 40 meq ONCE STA Administration Vital Signs: Temp Pulse Resp BP Pulse Ox 03/22/19 14:20 101.0 F H 19 03/22/19 11:47 102.0 F H 88 22 178/85 H 96 Departure - Departure Time of Disposition: 12:00 Disposition: ADMITTED INPATIENT Discharge Problem: Backache, Colitis Condition: Good Pt referred to PMD for follow-up: Yes IPMP verified?: No Allergies/Adverse Reactions: Allergies Penicillins Adverse Reaction (Unverified 03/22/19 11:56) Unknown childhood allergy Sulfa (Sulfonamide Antibiotics) Adverse Reaction (Unverified 03/22/19 11:56) Unknown childhood allergy Home Medications: Ambulatory Orders Multivitamin/Iron/Folic Acid [Multi Complete-Iron Tablet] 1 each PO d 08/15/16 Gabapentin 600 mg PO DAILY 11/13/18 Hydrocodone/Acetaminophen [Hydrocodone-Acetamin 10-325 mg] 1 tab PO TID PRN Metoprolol Tartrate 50 mg PO BID 03/22/19 Acetaminophen [Tylenol] 1,000 mg PO ONCE tablet 03/24/19 Ciprofloxacin HCl [Cipro] 500 mg PO BIDCIPRO #10 tablet 03/24/19 Hydrocodone Bit/Acetaminophen [[place] 10-325] 1 tab PO Q8HR tab 03/24/19 Metronidazole [Flagyl] 500 mg PO TID 5 Days #15 tablet 03/24/19 Potassium Chloride [K-Dur] 40 meq PO ONCE #30 tab 03/24/19 Prednisone 40 mg PO DAILYWM #14 tablet 03/24/19 Sitagliptin Phosphate [Januvia] 100 mg PO DAILY 10 Days #10 tablet 03/24/19 Disposition Discussed With: Patient
[2019-03-22] MEDS ORDERED: SODIUM CHLORIDE 1,000 ML IV STA (14:32)
--- NOTE | 2019-03-22 14:33 | CT ---
EXAM: CT of the lumbar spine with and without contrast History: Lower back pain. Technique: Multiplanar CT images through the lumbar spine were obtained with and without the adminis tration of IV contrast. The Findings: The liver is fatty. Fluid seen in the colon. No acute fracture or subluxation of the lumbar spine. Disc space heights are preserved. Small disc bulges are seen at L3-4 and L4-5 effacing the anterior thecal sac with mild central canal stenosis. There is mild to moderate bilateral bony neural foraminal narrowing within the lower lumbar spine sec ondary to facet hypertrophy. The contrast enhanced images demonstrate no paraspinal fluid collection s and no obvious epidural abscess. Nonspecific posterior subcutaneous edema. Impression: 1. No acute osseous abnormality of the lumbar spine and no significant degenerative changes. 2. The contrast enhanced images demonstrate no paraspinal abscess and no obvious epidural abscess. If symptoms persist, recommend MRI of the lumbar spine with and without contrast.
[2019-03-22] MEDS ORDERED: LEVAQUIN 100 ML IV ONE (14:35)
[2019-03-22] MEDS ORDERED: TYLENOL PO STA ×2 (14:58→15:34)
[2019-03-22] MEDS ORDERED: SOLU-MEDROL 125 MG IVP STA (14:58)
[2019-03-22] MEDS ORDERED: HUMULIN R SUBCUT STA (15:05)
[2019-03-22] MEDS ORDERED: SODIUM CHLORIDE 1,500 ML IV SCH (15:30)
[2019-03-22] MEDS ORDERED: SOLU-MEDROL 125 MG ONE (15:42)
[2019-03-22] MEDS: FLAGYL 500 MG/100 ML 500 MG in PREMIX 100 ML NS 1 BAG IV SCH ×2 (16:21→18:18)
[2019-03-22 16:29] VITALS: BMI 48.3
--- NOTE | 2019-03-22 17:09 | PCM ---
- Chief Complaint Chief Complaint: Low back pain/Flu like symptoms. - History of Present Illness History of Present Illness: 33 yo WM patient of Dr. Rdz presented to ED on 03/22/19 12:[address] Calles. Temp noted to be 102 degrees, pulse 88, rr 22, BP 178/85, pulse ox 96 at 11:47 am. At 14:20 101.0, RR 19. Patient reported low back pain, malaise , fatigue, no known trauma, no falls, no injury w/ sx for 24 hours . Pain is colicky, coming in waves, rated at 7-8/10. Pain present in ER, discrete pain, not reproducible. Aching, burning, stabbing at times. Improved with rest, worse with motion. Mild to moderate severity as noted. Fever noted, flank pain right noted. No swelling, no bruising, no falls, no known/obvious injury. No saddle paresthesia, no radicular symptoms, no bladder/bowel changes, no loss of control. No focal tenderness. Straight leg raise testing in ER was negative. Known histoyr of HTN, gout, depression, morbid obseity BMI 48. Initial suspect ED DDX was arthritis, renal colic, strain, sprain. Labs showed WBC 11.71, hgb 13.0, plt 209, sodium 135, K+ 3.29, BUN 12.7, cr 1.21, glucose 172.8. Former smoker, not actively smoker. UA negative. Procalcitionin negative, lactic acid 1.94. CT abdomen pelvis w/o contrast stone protocol showed mild pancolitis, likely infectious or inflammatory. Small fat containing umbilical hernia, fatty liver. Normal appendix. No stones. CT Lsp no acute bony process. No paraspinal abscess, no obvious epidural abscess. Consider MRI LSP per radiology if sx persist. Dr. Calles called me personally at 15:00 and we discussed the case via phone. I have recommended that they admit to observational status. Labs reviewed. Discussed abx, will start unasyn and flagyl for now, will get PCR [facility] with next stool, also add solumedrol- 20mg IV q 8 hours. With his history of DM, last A1C 6.56 on 10/27/18, I will check this again. Ideally I would like to get him on oral steroid vs oral 5ASA product. We will repeat A1C here. No sick contacts, no recent travel to areas endemic for causes of infection. No bloody diarrhea. REctal done in Er and negative. Patient seen in room 119 17:39. He has had 24 hours of diarrhea q 15 minutes. Nausea and emesis last night with 2-3 bouts of emesis. No bloody emesis, no bloody diarrhea. NO sick contacts, no travel, no history of UC/ Crohns, no history of IBD, IBS, no family history either. He has had colonoscopy several years ago (he does not remember why that was ordered). He notes that this done with EGD and they found nothing. Discussed recent abx, none recently. Stool is loose, not foul smelling. ER labs reviewed with patient. He has not missed any meds. No changes in weight. ROS as listed below. Pain seems to be much better after steroids. He notes now 4/10. he feels his fever his breaking and he feels better after some fluids. Vitals reviewed again and stable. He is more comfortable now. - Review of Systems Constitutional: fever, chills, weakness, sweats, fatigue, loss of appetite Eyes: No: blurred vision, double-vision, discharge, itching, pain, redness, photophobia, other Ears: No: pain, bleeding, drainage, ringing, hearing loss, other Nose: No: bleeding, congestion, discharge, other Throat: No: pain, swelling, voice change, other Mouth: No: bleeding, pain, swelling, other Respiratory: No: cough, shortness of air, wheeze, hemoptysis, pain with breathing, other Cardiovascular: No: chest pain, left arm pain, diaphoresis, PND, orthopnea, edema, palpitations, syncope, other Gastrointestinal: abdominal pain, nausea, vomiting, diarrhea. No: melena, hematemesis, hematochezia, dysphagia, constipation, other Genitourinary: No: dysuria, hematuria, frequency, incontinence, flank pain, penile discharge, testicular pain, testicular swelling, other Neurological: headache, dizziness. No: seizure, numbness, weakness, speech difficulty, problems with walking, tremor, fainting, other Musculoskeletal: pain (back) Skin: No: rash, pruritus, lacerations, wounds, bruising, other Immunology: No: hives, itching, frequent infections, difficulty healing, other Endocrine: No: weight changes, cold intolerance, heat intolerance, excessive thirst, excessive hunger, polyuria, other Psychiatric: No: depression, anxiety, sleeplessness, hopelessness, suicidal, hallucinations, other Habits: No: tobacco use, substance use, alcohol use, other - Past Medical History Past Medical History: Arthritis, back pain thoracic chronic, diabetes mellitus last A1C 10/2018 6.56, Gout, HTN, JADE, morbid obesity. Heart cath as teenager. Chronic opiate use. - Past Surgical History Past Surgical History: Heart cath as teenager. - Allergies Allergies/Adverse Reactions: Allergies Allergy/AdvReac Type Severity Reaction Status Date / Time Penicillins AdvReac Unknown Unverified 03/22/19 11:56 Sulfa (Sulfonamide AdvReac Unknown Unverified 03/22/19 11:56 Antibiotics) - Medications Medications: Medications Generic Name Dose Route Start Last Admin Trade Name Freq PRN Reason Stop Dose Admin Sodium Chloride 1,000 mls @ 125 mls/hr 03/22/19 12:26 03/22/19 13:22 Sodium Chloride IV 03/22/19 20:25 125 mls/hr .Q8H STA Administration Metronidazole 500 mg/ Sodium 100 mls @ 100 mls/hr 03/22/19 15:00 03/22/19 16: 21 Chloride IV 03/25/19 14:59 100 mls/hr Q6HR PRAKASH Administration Sodium Chloride 1,500 mls @ 125 mls/hr 03/22/19 15:30 Sodium Chloride IV .Q12H PRAKASH Lisinopril 20 mg 03/23/19 09:00 Zestril PO DAILY PRAKASH Methylprednisolone Sodium Succinate 80 mg 03/22/19 21:00 Solu-Medrol 125 Mg IVP Q12HR PRAKASH Metoprolol Tartrate 50 mg 03/22/19 21:00 Lopressor PO BID PRAKASH Topiramate 100 mg 03/22/19 21:00 Topamax PO BID PRAKASH - Family History Past Family History: MOther RA, HTN, MGF with history of prostate cancer, COPD. Son HTN, recurrent ROSSI. Poor family history knowledge. - Social History Past Social History: Former smoker. 10-25 pack years. No drug use, temple. Lives with , four children. Pets at home dogs x 5. None of them have been sick. - Body Composition Height: 5 ft 10 in Weight: 336 lb 12.8 oz Body Mass Index (BMI): 48.3 - Physical Examination HEENT: Vital Signs - 24 hr 03/22/19 03/22/19 03/22/19 11:47 14:20 15:55 Temperature 102.0 F H 101.0 F H Pulse Rate 88 86 Respiratory 22 19 20 Rate Blood Pressure 178/85 H 121/71 O2 Sat by Pulse 96 99 Oximetry 03/22/19 03/22/19 16:15 22:00 Temperature 101.0 F H 97.7 F Pulse Rate 86 66 Respiratory 18 18 Rate Blood Pressure 122/78 O2 Sat by Pulse 98 98 Oximetry Constitutional: Appearance-No acute distress, Consistent with stated age. Orientation- Oriented x 3, alertGait-Normal pace, normal arm movement. Build and Nutrition-[BMI 48.3 General- Patient is pleasant and cooperative with the interview and exam. Integumentary: General-No rashes, ulcers or lesions. Palpation- Normal skin moisture/turgor. Skin is warm to touch, appropriate. Capillary refill is normal bilateral Upper and lower extremity. Head/Neck: Head- normocephalic and atraumatic. Neck- without visible/palpable lumps or pulsations. Palpation- No bony tenderness about head/neck along frontal, occipital, temporal, parietal, mastoid, jawline, zygoma, orbit or any other location. NO temporal artery tenderness. No TMJ tenderness. Neck Supple. Thyroid-No thyromegaly, no nodules Eye: Bilaterally PERRLA, EOMI. No discharge. Upper and lower eyelids are normal. Sclera/conjunctiva normal without discharge. Cornea is normal and clear. Lens is normal. Eyeball appears normal. No ciliary flushing, no conjunctival injection. ENMT: Pinna- normal without tenderness or erythema. External auditory canal Left- normal without erythema or discharge, no excessive cerumen. External auditory canal Right-normal without erythema or discharge, no excessive cerumen. TM left- Fontaine/pearly, normal light reflex and anatomy TM Right- [place]/ pearly, normal light reflex and anatomy Hearing Assessment-normal to conversational speech. Nose and sinus- No sinus tenderness along frontal/ maxillary region. External appearance normal and midline. Nares- bilateral quiet airflow, no discharge. Nasal mucosa- No bleeding noted and no ulcerations observed. [place], moist. Turbinates non boggy. Lips- normal color, moist without cracks/lesions Oral Cavity/Palate- hard/soft palate intact without lesions, oral mucosa pink and moist Tongue normal midline. Oropharynx- no pharyngeal erythema, Uvula midline. No post nasal drip. No exudate. Salivary glands- Non tender to palpation CHEST/LUNG: Inspection- symmetric chest wall no pectus deformity. Normal effort , no distress, no use of accessory muscles. Palpation- nontender sternum, ribline. No abnormal pulsations. Auscultation- Breath sounds normal throughout all lung trevino. Normal tracheal sounds, Normal bronchial sounds overlying sternum, Bronchovessicular sounds normal between scapulae posteriorly, Normal vessicular breath sounds heard throughout periphery. Lungs are clear today. Adventitious sounds- No wheezes, rales, rhonchi. CARDIOVASCULAR: Carotid artery- normal, no bruits or abnormal pulsations. Jugular vein- no pulsations. Palpation/Percussion- Normal PMI, no palpable thrill Auscultation- Regular rate and rhythm. No murmur noted in sitting, supine positions. Extremities- no digital clubbing, cyanosis, edema, increased warmth. ABDOMEN: Inspection- normal and no visible pulsations. Normal contour. Auscultation- Bowel sounds hypoactive. no abdominal bruits. Palpation/Percussion - soft, non-tender, no rebound tenderness, no rigidity (guarding), no jar tenderness, no masses. Liver- difficult exam secondary to habitus. Spleen difficult exam secondary to habitus. Rectal not examined. Peripheral Vascular: Upper extremity Left- Normal temperature with pink nailbeds and no ulcerations. Upper extremity Right- Normal temperature with pink nailbeds and no ulcerations. Lower extremity- Normal temperature with pink nailbeds and no ulcerations. DP pulses 2+ bilaterally. Pedal hair intact. Normal capillary refill. Edema- No edema. Musculoskeletal: Generalized-No generalized swelling or edema of extremities, no digital clubbing or cyanosis, neurovascularly intact all four extremities. Upper extremity- Symmetrical posture. No visible deformity. Normal sensation along medial and lateral upper extremity proximally and distally. NO tenderness overlying shoulder, lateral/medial epicondyle. [place] 5/5 and strength 5/5 bilateral UE. Elbow palpated, no tenderness overlying olecranon. Normal supination, pronation to active/passive ROM and to resisted rotation. Bicep insertion/tricep insertion appear normal without obvious pathology. Rotator cuff evaluated and intact. Normal wrist ROM bilaterally. Normal hand movement, intrinsic muscles of hands normal. No tenderness to palpation of hands/wrists/ elbows. Lower extremity- Hip: Not tender to palpation, no pain, no swelling, edema or erythema of surrounding tissue, normal strength and tone. Normal appearing hip ROM bilaterally without pain. Knee: Knee ROM normal. No tenderness overlying trochanters, no tenderness about patella, quad tendon, patellar tendon. No tenderness at tibial tuberosity. Ankle: normal ROM not tender to palpation along medial/lateral malleolus. Spine/Ribs- No deformities, masses. Tenderness, no known fractures, normal strength, Normal ROM. Normal stability No tenderness along C/T/L spine. Normal appearing ROM about spine. Neurological: General- Moves all 4 extremities symmetrically. Symmetrical face and body posture. Cranial nerves- individually evaluated II-XII and intact. PERRLA, Normal EOMI, visual/special senses appear intact, Face is symmetrical and normal sensation/movement, normal tongue, normal strength/posture of neck musculature. Reflexes- intact with DTR 2+ patellar, Achilles, bicep, brachial, tricep. Ankle clonus normal with 2 beats. Strength- 5/5 bilateral UE and LE. Soft touch- intact bilateral UE and LE. Temperature sensation- intact bilateral UE and LE. Neuropsych: Oriented- Person, place, time. (AAOx3), Mood/affect- normal and congruent. Able to articulate well. Speech-Normal speech, normal rate, normal tone, normal use of language, volume and coherence. Thought content- normal with ability to perform basic computations and apply abstract thought/reason. Associations- intact, no SI/HI, no hallucinations, delusions, obsessions. Judgment/insight- Appropriate. Memory-Recall intact, remote and recent memory intact. Knowledge- Age appropriate fund of knowledge, concentration and attention span normal. Lymphatic: Head/Neck- normal size and non tender to palpation. Axillary- normal size and non tender to palpation. Femoral and Inguinal- normal size and non tender to palpation. - Lab/Tests/Diagnostic Imaging Lab/Tests/Diagnostic Imaging: Laboratory Last Values WBC 11.71 K/ul (4.2-10.2) H 03/22/19 12:43 RBC 4.49 10^6/ul (4.70-6.10) L 03/22/19 12:43 Hgb 13.0 g/dl (14.0-18.0) L 03/22/19 12:43 Hct 38.9 % (42.0-52.0) L 03/22/19 12:43 MCV 86.6 fl (80.0-94.0) 03/22/19 12:43 MCH 29.0 pg (27.0-31.0) 03/22/19 12:43 MCHC 33.4 (31.8-35.4) 03/22/19 12:43 RDW Coeff of Miguel Angel 13.2 % (11.6-14.8) 03/22/19 12:43 Plt Count 209 10^3/uL (140-440) 03/22/19 12:43 Immature Gran % (Auto) 0.3 % (0.0-5.0) 03/22/19 12:43 Neut % (Auto) 86.2 03/22/19 12:43 Lymph % (Auto) 6.0 (10.0-50.0) L 03/22/19 12:43 [place] % (Auto) 6.9 (0-10) 03/22/19 12:43 Eos % (Auto) 0.3 % (0.0-7.0) 03/22/19 12:43 Baso % (Auto) 0.3 % (0.0-3.0) 03/22/19 12:43 Immature Gran # (Auto) 0.0 (0.0-1.0) 03/22/19 12:43 Neut # (Auto) 10.1 K/ul (2.0-6.9) H 03/22/19 12:43 Lymph # (Auto) 0.7 K/uL (0.60-3.4) 03/22/19 12:43 [place] # (Auto) 0.8 K/uL (0.4-2.0) 03/22/19 12:43 Eos # (Auto) 0.0 K/ul (0.0-0.7) 03/22/19 12:43 Baso # (Auto) 0.0 K/uL (0-0.2) 03/22/19 12:43 Sodium 135.0 mmol/L (134.5-145) 03/22/19 12:43 Potassium 3.29 mmol/L (3.5-5.1) L 03/22/19 12:43 Chloride 101.6 mmol/L (98-107) 03/22/19 12:43 Carbon Dioxide 20.7 mmol/L (22-30.0) L 03/22/19 12:43 Anion Gap 15.99 03/22/19 12:43 BUN 12.7 mg/dL (9-20) 03/22/19 12:43 Creatinine 1.21 mg/dL (0.60-1.10) H 03/22/19 12:43 Estimated GFR (MDRD) 68.00 mL/min 03/22/19 12:43 BUN/Creatinine Ratio 10.49 03/22/19 12:43 Glucose 172.8 mg/dL (74-106) H 03/22/19 12:43 Hemoglobin A1c 6.74 (4.0-6.0) H 03/22/19 12:43 Lactic Acid 1.94 mmol/L (0.7-2.1) 03/22/19 12:43 Calcium 9.33 mg/dL (8.4-10.2) 03/22/19 12:43 Total Bilirubin 0.59 mg/dL (0.2-1.3) 03/22/19 12:43 AST 12.2 U/L (17-59) L 03/22/19 12:43 ALT 23.7 U/L (0-50) 03/22/19 12:43 Alkaline Phosphatase 51.2 U/L (38-126) 03/22/19 12:43 Total Protein 7.10 g/dL (6.3-8.2) 03/22/19 12:43 Albumin 4.20 g/dL (3.5-5.0) 03/22/19 12:43 Globulin 2.90 03/22/19 12:43 Albumin/Globulin Ratio 1.44 03/22/19 12:43 Procalcitonin 0.29 ng/mL (<0.05) 03/22/19 12:43 Urine Color Yellow (YELLOW) 03/22/19 12:30 Urine Clarity Clear (CLEAR) 03/22/19 12:30 Urine pH 5.0 (5-9) 03/22/19 12:30 Ur Specific [place] >=1.030 (1.005-1.030) 03/22/19 12:30 Urine Protein Negative (NEGATIVE) 03/22/19 12:30 Urine Glucose (UA) Negative (NEGATIVE) 03/22/19 12:30 Urine Ketones Negative (NEGATIVE) 03/22/19 12:30 Urine Blood Negative (NEGATIVE) 03/22/19 12:30 Urine Nitrite Negative (NEGATIVE) 03/22/19 12:30 Urine Bilirubin Negative (NEGATIVE) 03/22/19 12:30 Urine Urobilinogen 0.2 (0.2) 03/22/19 12:30 Ur Leukocyte Esterase Negative (NEGATIVE) 03/22/19 12:30 CT Abd:mild pancolitis, normal appendix. No osseous processes. Etiology likely infectious/inflammatory, fatty liver. No gallstones, no nephrolith. CT LSP: No osseous abnl. No abscesses. - Assessment (1) Pancolitis Status: Acute Code(s): K51.00 - ULCERATIVE (CHRONIC) PANCOLITIS WITHOUT COMPLICATIONS SNOMED Code(s): 624889100 (2) Chronic back pain Status: Acute Code(s): M54.9 - DORSALGIA, UNSPECIFIED SNOMED Code(s): 980957787 (3) Essential (primary) hypertension Status: Acute Code(s): I10 - ESSENTIAL (PRIMARY) HYPERTENSION SNOMED Code(s) : 87133718 (4) BMI 45.0-49.9, adult Status: Acute Code(s): Z68.42 - BODY MASS INDEX (BMI) 45.0-49.9, ADULT SNOMED Code(s): 472304321, 030643567 (5) Type 2 diabetes mellitus with hemoglobin A1c goal of less than 7.0% Status: Acute Code(s): E11.9 - TYPE 2 DIABETES MELLITUS WITHOUT COMPLICATIONS SNOMED Code(s): 88454005 (6) Hypokalemia Status: Acute Code(s): E87.6 - HYPOKALEMIA SNOMED Code(s): 48832130 - Plan Plan: Pancolitis: Ddx includes: IBD (UC vs crohns), infectious colitis. Reviewed Er note, levaquin was ordered 500 and flagyl 500 ordered q 6 hours. He was given solu-medrol 250 in ER. I have dropped this to 40mg IVP Q12 hours. Oral 5ASA would be reasonable option for him as well and would likely not increase his sugars to such an extent. I called [facility], local [facility] pharmacy to ask about asacol vs sulfasalazine. In the meantime, I will continue IV steroids. I will check PCR stool, rectal in ER no blood. Will check stool occult as well. A1C orderd and <7.0 and stable. Await ESR/CRP. Prednisone vs budesonide at d/c. F/ U with GI at d/c. - Admit to 119-1 - Stool PCR sendout infection GI panel - I+O strict - Vitals q shift - cipro 500 BID - Flagyl to continue IV for now, when tolerating PO will change this to PO. - Will likely d/c on budesonide oral to cover for inflammation - ESR - CBC/CMP in am. Diabetes 2 A1C goal <7%: A1C ordered. REmains <7.0. Will monitor. Non insulin dependent. - Am CMP Hypokalemia: Replace with 20meq BID PO with meals. - 20meq BID with meals - CMP in am. Essential HTN: Suspect essential HTN. Good BP control is encouraged with Goal BP based on JNC 8 guidelines: For the general population <60 yr old goal BP < 140/90 and for those >60 150/90. For patients of all ages with Diabetes, CKD, Known CAD the goal is <140/90. Reviewed medications and discussed the typical first line agents to include thiazide diuretic or corinne-I or ARB or CCB alone or in combo. Sulfa allergy/PCN allergy. At goal NO. Monitor cholesterol regularly as outpatient. Monitor weight with goal of BMI initially to be <30. Consider taking Rx at night as recent study supports this may decrease chances of leading to DM. Checking BP at home can help to lower BP. Certain medications and substances can increase BP to include: NSAIDS, caffeine, decongestants, nicotine. Morbid Obesity:Discussed the federal guidelines suggest a healthy goal BMI of 18.5-24.9 for people 18-65 and 23-30 for people age 65 and older. Overweight is considered BMI 25-30, Obesity 30-40 and Morbid obesity is defined as >100 lb overweight or BMI >40. With a BMI above goal, it is recommended to utilize a diet/exercise program to get back into the appropriate range. Consider referral to student ministries director. For BMI >40 consider referral to bariatrics. If not already monitoring intake. I would recommend at least to keep a food diary. Document everything that is consumed into a food diary. Studies have shown that patients can lose up to 2x the weight by keeping track of foods. Offered handout on weight loss techniques. Apps that may be of benefit include [place], Lose it. Regular exercise encouraged. Start with walking 5-10 minutes at a pace that is difficult to carry a conversation. If chest pain/SOA stop and f/u in office. Diet: ADA 1800kcal (start clears and advance as tolerated) Dvt Prophy: Lovenox 40mg subcut x1 as negative blood so far. Discussed up with ambulation but BMI 48 and his ability to ambulate is low. Discussed ZHENG/SCD. With negative Blood in ER will give 1 dose. Activity: Ad melchor. Disposition: Plan D/C home in 24-48 hours. PCR stool infection ordered. ESR pending for markers of inflammation. Advance diet as tolerated. Check for C. Diff. Stop abx if + except oral vanco. Tailor abx to PCR resuls.
[2019-03-22] MEDS ORDERED: LOVENOX SUBCUT SCH (17:30)
[2019-03-22] MEDS ORDERED: LOVENOX ONE (17:35)
[2019-03-22] MEDS ORDERED: TOPIRAMATE 100 MG PO SCH (21:00)
[2019-03-22] MEDS ORDERED: SOLU-MEDROL 40 MG IVP SCH (21:00)
[2019-03-22] MEDS ORDERED: SOLU-MEDROL 125 MG IVP SCH ×2 (21:00)
[2019-03-22] MEDS: TOPAMAX PO SCH (21:06)
[2019-03-22] MEDS: LOPRESSOR PO SCH (21:06)
[2019-03-23] MEDS: FLAGYL 500 MG/100 ML 500 MG in PREMIX 100 ML NS 1 BAG IV SCH ×5 (02:34→23:11)
[2019-03-23] MEDS: SODIUM CHLORIDE 1,000 ML IV SCH ×3 (02:40→22:38)
[2019-03-23] MEDS: CIPRO PO SCH ×2 (06:30→20:05)
--- NOTE | 2019-03-23 07:44 | PCM.PROG ---
Subjective: 33 yo WM hospital day 2 admitted for pancolitis, hypokalemia, GERTRUDE, w/ comorbid essential HTN, DM2 controlled a1c <7.0, morbid obesity with BMI 48.3, chronic back pain, chronic opiate use. Overnight patient rested quite nicely. This am he was asleep, son in bedside chair. Patient w/ CPAP in place. He noted abdominal pain rated at 3/10 today, doing better. Diarrhea 600ml out overnight. He had elevated BP at admit 178/85 but this has been normal since he was seen by me 121/71, 122/78, 130/64. RR 18, 98-99% RA. He consumed 100% dinner las night. Labs this am show WBC improved from 11.71 down to 10.23. Hgb dropped from 13 to 12.5 and plt from 209 down to 197. The patient CMP this am sodium 135.3, K+ improved to 3.52 he is getting oral K+ replacement. Creatinine has improved from 1.21 to 1.06. GFR up from 68 to 80. Glucose this am 294 w/ a1c 6.74. His blood in stool was +. I have stopped the lovenox. Overnight call by nursing to me showed he ate 100% dinner, had jar of peanuts he was eating from. I discussed no peanuts, please limit to ADA 1800kcal. If he can tolerate diet, we can prepare for d/c home. Afebrile since admit. Again as noted , he has had diarrhea, no emesis, pain is improving. Hypokalemia is improving. No other c/o this am. Chronic back pain unchanged. Abd pain is better. He is hungry, he is using CPAP. BP is controlled. His sugars have increased and I have added correctional insulin while on steroid PO. REVIEW OF SYMPTOMS: (Positives bolded) General: weight loss, fever (RESOLVED), chills, night sweats, fatigue, appetite loss HEENT: blurry vision, eye pain, eye discharge, dry eyes, decreased vision, sore throat tinnitus, bloody nose, hearing loss, sinus pain/pressure, ear pain/ pressure. Respiratory: shortness of breath, cough, hemoptysis, wheezing, pleurisy, Cardiovascular: chest pain, PND, palpitation, edema, orthopnea, syncope, swelling of extremities Gastro: Nausea, vomiting(RESOLVED), diarrhea, hematemesis, abdominal pain, constipation Genito: hematuria, dysuria, glycosuria, hesitancy, frequency, incontinence [place]: Arthralgia, myalgia (BACK PAIN) muscle weakness, joint swelling, NSAID use Skin: rash, pruritis, sores, nail changes, skin thickening, change in wart/mole , itching, rash, new lesions, pruritus, nail changes Neuro: Migraine, numbness, ataxia, tremor, vertigo, weakness, memory loss, Irritability, dizziness Endocrine: excessive thirst, polyuria, cold intolerance, heat intolerance, goiter Psychiatric: depression, anxiety, anti-depressants, alcohol abuse, drug abuse, insomnia, change in sleep pattern and mood changes Heme/lymph: easy bruising, bleeding gums, blood clots, swollen glands, lymphedema, Allergic/immune: allergic rhinitis, hay fever, asthma, hives Objective: Vital Signs - 24 hr 03/22/19 03/22/19 03/22/19 11:47 14:20 15:55 Temperature 102.0 F H 101.0 F H Pulse Rate 88 86 Respiratory 22 19 20 Rate Blood Pressure 178/85 H 121/71 O2 Sat by Pulse 96 99 Oximetry 03/22/19 03/22/19 03/23/19 16:15 22:00 05:27 Temperature 101.0 F H 97.7 F 97.8 F Pulse Rate 86 66 69 Respiratory 18 18 18 Rate Blood Pressure 122/78 130/64 O2 Sat by Pulse 98 98 99 Oximetry Constitutional: Appearance-No acute distress, Consistent with stated age. Orientation- Oriented x 3, alertGait-Normal pace, normal arm movement. Build and Nutrition-[BMI 48.3 General- Patient is pleasant and cooperative with the interview and exam. Son in room in bedside chair. Asleep patient this am, CPAP in place, easily awoken by name. He noted improvement. Fully oriented. Integumentary: General-No rashes, ulcers or lesions. Palpation- Normal skin moisture/turgor. Skin is warm to touch, appropriate. Capillary refill is normal bilateral Upper and lower extremity. Head/Neck: Head- normocephalic and atraumatic. Neck- without visible/palpable lumps or pulsations. Palpation- No bony tenderness about head/neck along frontal, occipital, temporal, parietal, mastoid, jawline, zygoma, orbit or any other location. NO temporal artery tenderness. No TMJ tenderness. Neck Supple. Thyroid-No thyromegaly, no nodules Eye: Bilaterally PERRLA, EOMI. No discharge. Upper and lower eyelids are normal. Sclera/conjunctiva normal without discharge. Cornea is normal and clear. Lens is normal. Eyeball appears normal. No ciliary flushing, no conjunctival injection. ENMT: Nares- bilateral quiet airflow, no discharge. Nasal mucosa- No bleeding noted and no ulcerations observed. [place], moist. Turbinates non boggy. Lips- normal color, moist without cracks/lesions Oral Cavity/Palate- hard/soft palate intact without lesions, oral mucosa pink and moist Tongue normal midline. Oropharynx- no pharyngeal erythema, Uvula midline. No post nasal drip. No exudate. Salivary glands- Non tender to palpation CHEST/LUNG: Inspection- symmetric chest wall no pectus deformity. Normal effort , no distress, no use of accessory muscles. Palpation- nontender sternum, ribline. No abnormal pulsations. Auscultation- Breath sounds normal throughout all lung trevino. Normal tracheal sounds, Normal bronchial sounds overlying sternum, Bronchovessicular sounds normal between scapulae posteriorly, Normal vessicular breath sounds heard throughout periphery. Lungs are clear today. Adventitious sounds- No wheezes, rales, rhonchi. CARDIOVASCULAR: Carotid artery- normal, no bruits or abnormal pulsations. Jugular vein- no pulsations. Palpation/Percussion- Normal PMI, no palpable thrill Auscultation- Regular rate and rhythm. No murmur noted in sitting, supine positions. Extremities- no digital clubbing, cyanosis, edema, increased warmth. ABDOMEN: Inspection- normal and no visible pulsations. Normal contour. Auscultation- Bowel sounds improved today, now normal. Was hypoactive at admit. no abdominal bruits. Palpation/Percussion- soft, non-tender, no rebound tenderness, no rigidity (guarding), no jar tenderness, no masses. Liver- difficult exam secondary to habitus. Spleen difficult exam secondary to habitus. Peripheral Vascular: Upper extremity Left- Normal temperature with pink nailbeds and no ulcerations. Upper extremity Right- Normal temperature with pink nailbeds and no ulcerations. Lower extremity- Normal temperature with pink nailbeds and no ulcerations. DP pulses 2+ bilaterally. Pedal hair intact. Normal capillary refill. Edema- No edema. Musculoskeletal: Generalized-No generalized swelling or edema of extremities, no digital clubbing or cyanosis, neurovascularly intact all four extremities. Lower extremity- Hip: Not tender to palpation, no pain, no swelling, edema or erythema of surrounding tissue, normal strength and tone. Normal appearing hip ROM bilaterally without pain. Knee: Knee ROM normal. No tenderness overlying trochanters, no tenderness about patella, quad tendon, patellar tendon. No tenderness at tibial tuberosity. Spine/Ribs- No deformities, masses. Tenderness, no known fractures, normal strength, Normal ROM. Normal stability No tenderness along C/T/L spine. Normal appearing ROM about spine. He has paraspinal tenderness bilateral LE along the T and LSpine Neurological: General- Moves all 4 extremities symmetrically. Symmetrical face and body posture. Cranial nerves- individually evaluated II-XII and intact. PERRLA, Normal EOMI, visual/special senses appear intact, Face is symmetrical and normal sensation/movement, normal tongue, normal strength/posture of neck musculature. Neuropsych: Oriented- Person, place, time. (AAOx3), Mood/affect- normal and congruent. Able to articulate well. Speech-Normal speech, normal rate, normal tone, normal use of language, volume and coherence. Thought content- normal with ability to perform basic computations and apply abstract thought/reason. Associations- intact, no SI/HI, no hallucinations, delusions, obsessions. Lymphatic: Head/Neck- normal size and non tender to palpation. Femoral and Inguinal- normal size and non tender to palpation. Laboratory Last Values WBC 10.23 K/ul (4.2-10.2) H 03/23/19 05:00 RBC 4.37 10^6/ul (4.70-6.10) L 03/23/19 05:00 Hgb 12.5 g/dl (14.0-18.0) L 03/23/19 05:00 Hct 37.6 % (42.0-52.0) L 03/23/19 05:00 MCV 86.0 fl (80.0-94.0) 03/23/19 05:00 MCH 28.6 pg (27.0-31.0) 03/23/19 05:00 MCHC 33.2 (31.8-35.4) 03/23/19 05:00 RDW Coeff of Miguel Angel 13.3 % (11.6-14.8) 03/23/19 05:00 Plt Count 197 10^3/uL (140-440) 03/23/19 05:00 Immature Gran % (Auto) 0.3 % (0.0-5.0) 03/23/19 05:00 Neut % (Auto) 92.6 03/23/19 05:00 Lymph % (Auto) 5.4 (10.0-50.0) L 03/23/19 05:00 [place] % (Auto) 1.6 (0-10) 03/23/19 05:00 Eos % (Auto) 0.0 % (0.0-7.0) 03/23/19 05:00 Baso % (Auto) 0.1 % (0.0-3.0) 03/23/19 05:00 Immature Gran # (Auto) 0.0 (0.0-1.0) 03/23/19 05:00 Neut # (Auto) 9.5 K/ul (2.0-6.9) H 03/23/19 05:00 Lymph # (Auto) 0.6 K/uL (0.60-3.4) 03/23/19 05:00 [place] # (Auto) 0.2 K/uL (0.4-2.0) L 03/23/19 05:00 Eos # (Auto) 0.0 K/ul (0.0-0.7) 03/23/19 05:00 Baso # (Auto) 0.0 K/uL (0-0.2) 03/23/19 05:00 ESR 16 mm/hr (0-15) H 03/22/19 17:49 Sodium 135.3 mmol/L (134.5-145) 03/23/19 05:00 Potassium 3.52 mmol/L (3.5-5.1) 03/23/19 05:00 Chloride 103.5 mmol/L (98-107) 03/23/19 05:00 Carbon Dioxide 18.1 mmol/L (22-30.0) L 03/23/19 05:00 Anion Gap 17.22 03/23/19 05:00 BUN 14.3 mg/dL (9-20) 03/23/19 05:00 Creatinine 1.06 mg/dL (0.60-1.10) 03/23/19 05:00 Estimated GFR (MDRD) 80.00 mL/min 03/23/19 05:00 BUN/Creatinine Ratio 13.49 03/23/19 05:00 Glucose 294.0 mg/dL (74-106) H D 03/23/19 05:00 Hemoglobin A1c 6.74 (4.0-6.0) H 03/22/19 12:43 Lactic Acid 1.94 mmol/L (0.7-2.1) 03/22/19 12:43 Calcium 8.83 mg/dL (8.4-10.2) 03/23/19 05:00 Total Bilirubin 0.48 mg/dL (0.2-1.3) 03/23/19 05:00 AST 10.3 U/L (17-59) L 03/23/19 05:00 ALT 21.7 U/L (0-50) 03/23/19 05:00 Alkaline Phosphatase 48.3 U/L (38-126) 03/23/19 05:00 Total Protein 6.63 g/dL (6.3-8.2) 03/23/19 05:00 Albumin 3.82 g/dL (3.5-5.0) 03/23/19 05:00 Globulin 2.81 03/23/19 05:00 Albumin/Globulin Ratio 1.35 03/23/19 05:00 Procalcitonin 0.29 ng/mL (<0.05) 03/22/19 12:43 Urine Color Yellow (YELLOW) 03/22/19 12:30 Urine Clarity Clear (CLEAR) 03/22/19 12:30 Urine pH 5.0 (5-9) 03/22/19 12:30 Ur Specific [place] >=1.030 (1.005-1.030) 03/22/19 12:30 Urine Protein Negative (NEGATIVE) 03/22/19 12:30 Urine Glucose (UA) Negative (NEGATIVE) 03/22/19 12:30 Urine Ketones Negative (NEGATIVE) 03/22/19 12:30 Urine Blood Negative (NEGATIVE) 03/22/19 12:30 Urine Nitrite Negative (NEGATIVE) 03/22/19 12:30 Urine Bilirubin Negative (NEGATIVE) 03/22/19 12:30 Urine Urobilinogen 0.2 (0.2) 03/22/19 12:30 Ur Leukocyte Esterase Negative (NEGATIVE) 03/22/19 12:30 Stl Occult Blood (IFOB) Positive (NEGATIVE) 03/22/19 19:30 Stool Occult Blood #2 No specimen received (NEGATIVE) 03/22/19 19:30 Stool Occult Blood #3 No specimen received (NEGATIVE) 03/22/19 19:30 (1) Pancolitis Status: Acute Code(s): K51.00 - ULCERATIVE (CHRONIC) PANCOLITIS WITHOUT COMPLICATIONS SNOMED Code(s): 926350372 (2) Chronic back pain Status: Chronic Code(s): M54.9 - DORSALGIA, UNSPECIFIED SNOMED Code(s): 233968682 (3) Essential (primary) hypertension Status: Chronic Code(s): I10 - ESSENTIAL (PRIMARY) HYPERTENSION SNOMED Code( s): 01329514 (4) BMI 45.0-49.9, adult Status: Chronic Code(s): Z68.42 - BODY MASS INDEX (BMI) 45.0-49.9, ADULT SNOMED Code(s): 957674174 (5) Type 2 diabetes mellitus with hemoglobin A1c goal of less than 7.0% Status: Chronic Code(s): E11.9 - TYPE 2 DIABETES MELLITUS WITHOUT COMPLICATIONS SNOMED Code(s): 12740133 (6) Hypokalemia Status: Resolved Code(s): E87.6 - HYPOKALEMIA SNOMED Code(s): 86548538 (7) GERTRUDE (acute kidney injury) Status: Resolved Code(s): N17.9 - ACUTE KIDNEY FAILURE, UNSPECIFIED SNOMED Code(s): 72408286 (8) JADE on CPAP Status: Acute Code(s): G47.33 - OBSTRUCTIVE SLEEP APNEA (ADULT) (PEDIATRIC); Z99.89 - DEPENDENCE ON OTHER ENABLING MACHINES AND DEVICES SNOMED Code(s): 54722418 Plan: Pancolitis: Await results of PCR today. Will have nursing contact lab to see if any e/o infectious colitis. He is on solumedrol 40 IV BID. Cipro 500 PO BID, flagyl IV. Ddx still includes: IBD (UC vs crohns), infectious colitis. ESR was elevated. REviewed overnight nursing. Reviewed patient history this am. Reviewed Er note, levaquin was ordered 500 and flagyl 500 ordered q 6 hours. He was given solu-medrol 250 in ER. I have dropped this to 40mg IVP Q12 hours. Oral 5ASA would be reasonable option for him as well and would likely not increase his sugars to such an extent. I called admission nurse pharmacy to ask about asacol vs sulfasalazine, none of the preparations are available. We will need to continue to use steroids and correct insulin. I will check PCR stool, rectal in ER no blood, check of diarrhea on floor supports +bloody diarrhea causes such as campylobacter, yersinia enterocolitica, salmonella, shigella, E. Coli 0157:h7. try to get Budesonide covered for d/c. F/U with GI at d/c. - Obs Admit to 119-1 - Stool PCR sendout infection GI panel Call today to get results. - I+O strict - Vitals q shift - cipro 500 BID - Flagyl to continue IV for now, when tolerating PO will change this to PO. - Will likely d/c on budesonide oral to cover for inflammation - ESR elevated - CBC/CMP in am tomorrow Diabetes 2 A1C goal <7%: A1C ordered and at goal, <7.0. Steroidal effect of sugars. Correctional insulin ordered. - Am CMP - correctional insulin (see order) GERTRUDE: Resolved. GFR back to 80. Hypokalemia: Resolved. Continue to replace with 20meq BID PO with meals. - 20meq BID with meals - CMP in am. Essential HTN: Chronic controlled. Continue to monitor vitals. Continue home dose lisinopril. Morbid Obesity:Chronic/stable. Address as outpatient. Hourly Shift consult. JADE: Chronic Using CPAP. Diet: ADA 1800kcal if tolerating plan to d/c tomorrow. Dvt Prophy: Up and moving, early mobilization. - Add ZHENG/SCD when in bed. Activity: Ad melchor. Disposition: Plan D/C home in 24 hours, once I have received the final results of the PCR stool. Outpatient GI consult after he f/u with me in clinic. He is improving. This am 35 minutes spent on rounding. Advance diet as tolerated. Still working to check for C. Diff, Yersinia, campylobacter, salmonella, shigella, E. Coli. Stop abx if + C. Diff except change to oral vanco. For now we are pending results from outlying lab. Tailor abx to PCR resuls. 35 minutes spent today rounding on patient, not to include documentation. All Overnight notes reviewed. Discussed case 1:1 with am nurse.
[2019-03-23] MEDS: TOPAMAX PO SCH ×2 (08:16→20:05)
[2019-03-23] MEDS: ZESTRIL PO SCH (08:17)
[2019-03-23] MEDS: LOPRESSOR PO SCH ×2 (08:17→20:05)
[2019-03-23] MEDS ORDERED: NON-FORMULARY MEDICATION (Lisinopril [Lisinopril] 20 MG) PO SCH (09:00)
[2019-03-23] MEDS: SOLU-MEDROL 40 MG IVP SCH ×2 (09:03→20:15)
[2019-03-23] MEDS: HUMULIN R SUBCUT PRN ×3 (11:25→20:17)
[2019-03-23] MEDS: NORCO 10-325 PO SCH (23:16)
[2019-03-24] MEDS: CIPRO PO SCH (05:04)
[2019-03-24] MEDS: FLAGYL 500 MG/100 ML 500 MG in PREMIX 100 ML NS 1 BAG IV SCH (05:05)
[2019-03-24] MEDS: NORCO 10-325 PO SCH (05:19)
[2019-03-24] MEDS: HUMULIN R SUBCUT PRN ×2 (06:01→12:39)
[2019-03-24] MEDS: ZESTRIL PO SCH (08:46)
[2019-03-24] MEDS: TOPAMAX PO SCH (08:47)
[2019-03-24] MEDS: SOLU-MEDROL 40 MG IVP SCH (08:47)
[2019-03-24] MEDS: LOPRESSOR PO SCH (08:47)
[2019-03-24 11:16] VITALS: BP 117/66; TEMP 98
--- NOTE | 2019-03-24 12:21 | PCM.DC ---
Final Diagnosis: Diarrhea (Resolved) Pancolitis (Acute) BMI 45.0-49.9, adult (Chronic) Chronic back pain (Chronic) Essential (primary) hypertension (Chronic) Type 2 diabetes mellitus with hemoglobin A1c goal of less than 7.0% (Chronic) Hypokalemia (Acute) GERTRUDE (Resolved) JADE on CPAP (CHronic) (1) Pancolitis Status: Acute Code(s): K51.00 - ULCERATIVE (CHRONIC) PANCOLITIS WITHOUT COMPLICATIONS SNOMED Code(s): 366717327 (2) Chronic back pain Status: Chronic Code(s): M54.9 - DORSALGIA, UNSPECIFIED SNOMED Code(s): 459912701 (3) Essential (primary) hypertension Status: Chronic Code(s): I10 - ESSENTIAL (PRIMARY) HYPERTENSION SNOMED Code( s): 93429899 (4) BMI 45.0-49.9, adult Status: Chronic Code(s): Z68.42 - BODY MASS INDEX (BMI) 45.0-49.9, ADULT SNOMED Code(s): 228261781, 174125247 (5) Type 2 diabetes mellitus with hemoglobin A1c goal of less than 7.0% Status: Chronic Code(s): E11.9 - TYPE 2 DIABETES MELLITUS WITHOUT COMPLICATIONS SNOMED Code(s): 41591882 (6) Hypokalemia Status: Resolved Code(s): E87.6 - HYPOKALEMIA SNOMED Code(s): 92284700 (7) GERTRUDE (acute kidney injury) Status: Resolved Code(s): N17.9 - ACUTE KIDNEY FAILURE, UNSPECIFIED SNOMED Code(s): 02649315, 12739927 (8) JADE on CPAP Status: Chronic Code(s): G47.33 - OBSTRUCTIVE SLEEP APNEA (ADULT) (PEDIATRIC) ; Z99.89 - DEPENDENCE ON OTHER ENABLING MACHINES AND DEVICES SNOMED Code(s): 23681827 Reason for Hospitalization: Abdominal pain, nausea, vomiting, diarrhea, CT Pancolitis. Elevated ESR/CRP. Prognosis at Discharge: Good: Etiology unknown. C.diff negative. PCR stool pending. Still working through ddx of infectious vs inflammatory coliits. Henson colitis supports crohns as possibility. F/U with me 1300 03/29/19. Will likely refer to GI. Will f/u with pending PCR stool study. Condition at Discharge: Markedly improved/stable/back to baseline. Medications at Discharge: Ambulatory Orders Medication Instructions Recorded Multivitamin/Iron/Folic Acid 1 each PO d 08/15/16 [Multi Complete-Iron Tablet] Gabapentin 600 mg PO DAILY 11/13/18 Hydrocodone/Acetaminophen 1 tab PO TID PRN 03/22/19 [Hydrocodone-Acetamin 10-325 mg] Metoprolol Tartrate 50 mg PO BID 03/22/19 Acetaminophen [Tylenol] 1,000 mg PO ONCE tablet 03/24/19 Ciprofloxacin HCl [Cipro] 500 mg PO BIDCIPRO #10 tablet 03/24/19 Hydrocodone Bit/Acetaminophen 1 tab PO Q8HR tab 03/24/19 [Lipan 10-325] Metronidazole [Flagyl] 500 mg PO TID 5 Days #15 tablet 03/24/19 Potassium Chloride [K-Dur] 40 meq PO ONCE #30 tab 03/24/19 Prednisone 40 mg PO DAILYWM #14 tablet 03/24/19 Sitagliptin Phosphate [Januvia] 100 mg PO DAILY 10 Days #10 tablet 03/24/19 Lab/Diagnostics: Laboratory Last Values WBC 13.52 K/ul (4.2-10.2) H 03/24/19 05:00 RBC 3.91 10^6/ul (4.70-6.10) L 03/24/19 05:00 Hgb 11.1 g/dl (14.0-18.0) L 03/24/19 05:00 Hct 34.0 % (42.0-52.0) L 03/24/19 05:00 MCV 87.0 fl (80.0-94.0) 03/24/19 05:00 MCH 28.4 pg (27.0-31.0) 03/24/19 05:00 MCHC 32.6 (31.8-35.4) 03/24/19 05:00 RDW Coeff of Miguel Angel 13.5 % (11.6-14.8) 03/24/19 05:00 Plt Count 239 10^3/uL (140-440) 03/24/19 05:00 Immature Gran % (Auto) 0.7 % (0.0-5.0) 03/24/19 05:00 Neut % (Auto) 88.8 03/24/19 05:00 Lymph % (Auto) 6.7 (10.0-50.0) L 03/24/19 05:00 Foster % (Auto) 3.7 (0-10) 03/24/19 05:00 Eos % (Auto) 0.0 % (0.0-7.0) 03/24/19 05:00 Baso % (Auto) 0.1 % (0.0-3.0) 03/24/19 05:00 Immature Gran # (Auto) 0.1 (0.0-1.0) 03/24/19 05:00 Neut # (Auto) 12.0 K/ul (2.0-6.9) H 03/24/19 05:00 Lymph # (Auto) 0.9 K/uL (0.60-3.4) 03/24/19 05:00 Foster # (Auto) 0.5 K/uL (0.4-2.0) 03/24/19 05:00 Eos # (Auto) 0.0 K/ul (0.0-0.7) 03/24/19 05:00 Baso # (Auto) 0.0 K/uL (0-0.2) 03/24/19 05:00 ESR 16 mm/hr (0-15) H 03/22/19 17:49 Sodium 137.5 mmol/L (134.5-145) 03/24/19 05:00 Potassium 3.69 mmol/L (3.5-5.1) 03/24/19 05:00 Chloride 106.9 mmol/L (98-107) 03/24/19 05:00 Carbon Dioxide 20.3 mmol/L (22-30.0) L 03/24/19 05:00 Anion Gap 13.99 03/24/19 05:00 BUN 19.1 mg/dL (9-20) 03/24/19 05:00 Creatinine 1.04 mg/dL (0.60-1.10) 03/24/19 05:00 Estimated GFR (MDRD) 81.00 mL/min 03/24/19 05:00 BUN/Creatinine Ratio 18.36 03/24/19 05:00 Glucose 242.6 mg/dL (74-106) H D 03/24/19 05:00 Hemoglobin A1c 6.74 (4.0-6.0) H 03/22/19 12:43 Lactic Acid 1.94 mmol/L (0.7-2.1) 03/22/19 12:43 Calcium 8.50 mg/dL (8.4-10.2) 03/24/19 05:00 Total Bilirubin 0.24 mg/dL (0.2-1.3) 03/24/19 05:00 AST 9.3 U/L (17-59) L 03/24/19 05:00 ALT 17.6 U/L (0-50) 03/24/19 05:00 Alkaline Phosphatase 49.1 U/L (38-126) 03/24/19 05:00 C-Reactive Prot, Quant 161 mg/L (0-10) H 03/22/19 17:49 Total Protein 5.83 g/dL (6.3-8.2) L 03/24/19 05:00 Albumin 3.30 g/dL (3.5-5.0) L 03/24/19 05:00 Globulin 2.53 03/24/19 05:00 Albumin/Globulin Ratio 1.30 03/24/19 05:00 Procalcitonin 0.29 ng/mL (<0.05) 03/22/19 12:43 Urine Color Yellow (YELLOW) 03/22/19 12:30 Urine Clarity Clear (CLEAR) 03/22/19 12:30 Urine pH 5.0 (5-9) 03/22/19 12:30 Ur Specific [place] >=1.030 (1.005-1.030) 03/22/19 12:30 Urine Protein Negative (NEGATIVE) 03/22/19 12:30 Urine Glucose (UA) Negative (NEGATIVE) 03/22/19 12:30 Urine Ketones Negative (NEGATIVE) 03/22/19 12:30 Urine Blood Negative (NEGATIVE) 03/22/19 12:30 Urine Nitrite Negative (NEGATIVE) 03/22/19 12:30 Urine Bilirubin Negative (NEGATIVE) 03/22/19 12:30 Urine Urobilinogen 0.2 (0.2) 03/22/19 12:30 Ur Leukocyte Esterase Negative (NEGATIVE) 03/22/19 12:30 Stl Occult Blood (IFOB) Negative (NEGATIVE) 03/23/19 13:00 Stool Occult Blood #2 No specimen received (NEGATIVE) 03/23/19 13:00 Stool Occult Blood #3 No specimen received (NEGATIVE) 03/23/19 13:00 Miscellaneous Test 03/23/19 13:00 CT Abd:mild pancolitis, normal appendix. No osseous processes. Etiology likely infectious/inflammatory, fatty liver. No gallstones, no nephrolith. CT LSP: No osseous abnl. No abscesses. Education Provided to Patient and Family: 1. UC/Crohns/Infectious colitis 2. 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 Diabetic education/Hyperglycemia 4. Obesity BMI 48. Follow-ups: 1. Dr. Rdz 1300 03/29/19. Disposition: HOME SELF-CARE Hospital Course: 33 yo WM patient of Dr. Rdz presented to ED on 03/22/19 12:[address] Calles. Temp noted to be 102 degrees, pulse 88, rr 22, BP 178/85, pulse ox 96 at 11:47 am. Patient reported low back pain, malaise, fatigue, no known trauma, no falls, no injury w/ sx for 24 hours . Pain is colicky, coming in waves, rated at 7-8/10. Pain present in ER, discrete pain, not reproducible. Aching, burning, stabbing at times. Improved with rest, worse with motion. Mild to moderate severity as noted. Fever noted, flank pain right noted. No swelling, no bruising, no falls, no known/obvious injury. No saddle paresthesia , no radicular symptoms, no bladder/bowel changes, no loss of control. No focal tenderness. Straight leg raise testing in ER was negative. Known history of HTN, gout, depression, morbid obseity BMI 48. Initial suspect ED DDX was arthritis, renal colic, strain, sprain. Labs showed WBC 11.71, hgb 13.0 , plt 209, sodium 135, K+ 3.29, BUN 12.7, cr 1.21, glucose 172.8. Former smoker , not actively smoker. UA negative. Procalcitionin negative, lactic acid 1.94. CT abdomen pelvis w/o contrast stone protocol showed mild pancolitis, likely infectious or inflammatory. Small fat containing umbilical hernia, fatty liver. Normal appendix. No stones. CT Lsp no acute bony process. No paraspinal abscess, no obvious epidural abscess. Dr. Calles called me personally at 15:00 and we discussed the case via phone. Admitted pt to observational status. Last A1C 6.56 on 10/27/18, repeated during hospital stay and was 6.74. No known sick contacts, no recent travel to areas endemic for causes of infection. No bloody diarrhea reported. Rectal done in Er and hemoccult were negative. Patient admitted to obs room 119 17:39. He has had 24 hours of diarrhea q 15 minutes. Nausea and emesis night prior with 2-3 bouts of emesis. No bloody emesis, no bloody diarrhea. NO sick contacts, no travel, no history of UC/Crohns, no history of IBD, IBS, no family history either. He has had colonoscopy several years ago (he does not remember why that was ordered ). He notes that this done with EGD and they found nothing. Discussed recent abx, none recently. Stool is loose, not foul smelling. ER labs reviewed with patient. He has not missed any meds. No changes in weight. ROS as listed below. Pain seemed to be much better after steroids in ER. Patient was admitted, labs for following am ordered. PCR stool ordered for e/o infectious colitis, stool hemoocult ordered (returned positive). White count was up to 13.52 with steroids, hgb down to 11.1 with normal MCV, ESR was ordered and returned 16, CRp returned 161. Potassium was fine on 03/23 and 03/24 3.52/3.9 respectively Sugars spiked with steroids to 294/242.6. I added correctional insulin. He had good uout throughout stay. He got 1 dose of lovenox on 03/22/19 but had +blood in stool and I stopped the agent on . Dvt Prophy with up w/ ambulation. The night of 03/22/19 after recommending taking it easy on food he had jar of peanuts, he had jug of gatorade. Brought in own food and was tolerating full PO 03/23/19 by lunch. Pain 50%-75% better by dinner and essentially resolved by am of 03/24/19. He had negative c.diff returned this am. He was on levaquin flagyl day 1, changed to cipro PO and IV flagyl day 2 and today makes day 3 of abx for him. He will be d/c with 5 days of cipro 500 BID/Flagyl 500 TID. I will see him on friday03/29/19 1300. I will refer to GI. Considered CANCA/PANCA/anti saccharomyces cerevisase abs. Urine looked fine. With [place] budesonide orally is not covered (my rx of choice). He has sulfa allergy so sulfasalazine is less beneficiial and pentasa is not covered until sulfasalazine is tried/failed. I chose prednisone 40mg daily x 5-7 days. I also will add januvia for 10 days to cover for the hyperglycemia as he does not want anything injection and he cannot tolerate sulfonylurea secondary to allergy profile. He was seen by on 03/24/19. WBC up a little 13.52 likely steroidal effect. Anemia normocytic MCV 87, plt up to 239. Glucose elevated 242.6. Stool blood repeat was negative. Accuchecks were 294/ 278/247/257/242. Voided x 4, 100% food consumed. BP stable 117-130/59-74, 97- 100% room air. Pulse 65-74. Recommended f/u with me 03/29/19 1300. Refer to GI. Vital Signs - 24 hr 03/23/19 03/23/19 03/23/19 14:00 17:50 22:00 Temperature 98.7 F 97.6 F 97.8 F Pulse Rate 70 74 72 Respiratory 20 18 18 Rate Blood Pressure 119/64 117/59 L 128/63 O2 Sat by Pulse 98 98 97 Oximetry 03/24/19 03/24/19 03/24/19 02:00 05:27 10:00 Temperature 98.1 F 98.2 F 98.0 F Pulse Rate 69 71 58 L Respiratory 18 20 18 Rate Blood Pressure 121/69 130/63 117/66 O2 Sat by Pulse 100 99 100 Oximetry Constitutional: Appearance-No acute distress, Consistent with stated age. Orientation- Oriented x 3, alertGait-Normal pace, normal arm movement. Build and Nutrition-[BMI 48.3 General- Patient is pleasant and cooperative with the interview and exam. Integumentary: General-No rashes, ulcers or lesions. Palpation- Normal skin moisture/turgor. Skin is warm to touch, appropriate. Capillary refill is normal bilateral Upper and lower extremity. ENMT: Nares- bilateral quiet airflow, no discharge. Nasal mucosa- No bleeding noted and no ulcerations observed. [place], moist. Turbinates non boggy. Lips- normal color, moist without cracks/lesions Oral Cavity/Palate- hard/soft palate intact without lesions, oral mucosa pink and moist Tongue normal midline. Oropharynx- no pharyngeal erythema, Uvula midline. No post nasal drip. No exudate. Salivary glands- Non tender to palpation CHEST/LUNG: Inspection- symmetric chest wall no pectus deformity. Normal effort , no distress, no use of accessory muscles. Palpation- nontender sternum, ribline. No abnormal pulsations. Auscultation- Breath sounds normal throughout all lung trevino. Normal tracheal sounds, Normal bronchial sounds overlying sternum, Bronchovessicular sounds normal between scapulae posteriorly, Normal vessicular breath sounds heard throughout periphery. Lungs are clear today. Adventitious sounds- No wheezes, rales, rhonchi. CARDIOVASCULAR: Carotid artery- normal, no bruits or abnormal pulsations. Jugular vein- no pulsations. Palpation/Percussion- Normal PMI, no palpable thrill Auscultation- Regular rate and rhythm. No murmur noted in sitting, supine positions. Extremities- no digital clubbing, cyanosis, edema, increased warmth. ABDOMEN: Inspection- normal and no visible pulsations. Normal contour. Auscultation- Bowel sounds improved today, now normal. Was hypoactive at admit. no abdominal bruits. Palpation/Percussion- soft, non-tender, no rebound tenderness, no rigidity (guarding), no jar tenderness, no masses. Peripheral Vascular: Upper extremity Left- Normal temperature with pink nailbeds and no ulcerations. Upper extremity Right- Normal temperature with pink nailbeds and no ulcerations. Lower extremity- Normal temperature with pink nailbeds and no ulcerations. DP pulses 2+ bilaterally. Pedal hair intact. Normal capillary refill. Edema- No edema. Musculoskeletal: Generalized-No generalized swelling or edema of extremities, no digital clubbing or cyanosis, neurovascularly intact all four extremities. Lower extremity- Hip: Not tender to palpation, no pain, no swelling, edema or erythema of surrounding tissue, normal strength and tone. Normal appearing hip ROM bilaterally without pain. Knee: Knee ROM normal. No tenderness overlying trochanters, no tenderness about patella, quad tendon, patellar tendon. No tenderness at tibial tuberosity. Spine/Ribs- No deformities, masses. Tenderness, no known fractures, normal strength, Normal ROM. Normal stability No tenderness along C/T/L spine. Normal appearing ROM about spine. He has paraspinal tenderness bilateral LE along the T and LSpine Neurological: General- Moves all 4 extremities symmetrically. Symmetrical face and body posture. Cranial nerves- individually evaluated II-XII and intact. PERRLA, Normal EOMI, visual/special senses appear intact, Face is symmetrical and normal sensation/movement, normal tongue, normal strength/posture of neck musculature. Neuropsych: Oriented- Person, place, time. (AAOx3), Mood/affect- normal and congruent. Able to articulate well. Speech-Normal speech, normal rate, normal tone, normal use of language, volume and coherence. Thought content- normal with ability to perform basic computations and apply abstract thought/reason. Associations- intact, no SI/HI, no hallucinations, delusions, obsessions. Lymphatic: Head/Neck- normal size and non tender to palpation. Femoral and Inguinal- normal size and non tender to palpation. Plan: 1. Clostridiodes dificile was negative in hospital> Blood was in the diarrhea. We are still waiting for the infectious disease panel. 2. Await results of the infectious disease panel to evaluate for infectious colitis. 3. Antibiotics to continue x 5 days: Ciprofloxacin 500 2x daily x 5 days and metronidazole 500 3x daily x 5 days. - Do not drink alcohol while on metronidazole as it will make you very sick. Your body cannot break down alcohol 4. Weight loss/portion control. 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 Would like to continue this outpatient. 5. Steroids have been given: I tried to find formulary coverage for budesonide (not covered), sulfasalazine not a good choice with patient sulfa allergy, mesalamine(pentasa) cannot be used before sulfasalazine so prednisone was selected. This can cause sugars to elevate. I have added 10 day supply of januvia to help with sugar load. Handout on medication was provided. 6. Resume home medications 7. Can return to work at 4pm today. 8. Diet [place] Diabetic 1800kcal/day day encouraged 9. Activities as tolerated 10. Return to ER if worsening or follow up in clinic as able. PENDING LABS: PCR stool Follow up with nm 1300 03/29/19. Will refer patient to GI. >30 minutes spent rounding on patient today, not to include documentation.
== END 2019-03-24 13:25 | disposition home or self-care (01) | DRG 386 ==
LOC: ED 11:47 → MEDSURG B 15:09
PROVIDERS: ADMIT Family Medicine; ATTEND Family Medicine
DX: K51.00 Ulcerative (chronic) pancolitis without complications (principal); N17.9 Acute kidney failure, unspecified; Z68.42 Body mass index [BMI] 45.0-49.9, adult; R19.7 Diarrhea, unspecified; R50.9 Fever, unspecified; R10.9 Unspecified abdominal pain; R63.0 Anorexia; R53.81 Other malaise; K52.9 Noninfective gastroenteritis and colitis, unspecified; G47.33 Obstructive sleep apnea (adult) (pediatric); E87.6 Hypokalemia; E11.9 Type 2 diabetes mellitus without complications; I10 Essential (primary) hypertension
CPT/HCPCS: 36415; 80053; 81001; 82272; 82962; 83036; 83605; 84145; 85025; 85651; 86140; 87040; 87493; 87651; 93005; 93010; 96361; 96365; 97802; 99284

== ENCOUNTER 2019-06-02 16:32 | Emergency (ER) ==
[2019-06-02 16:34] VITALS: BP 158/101; TEMP 99.9; BMI 49.0
--- NOTE | 2019-06-02 16:57 | ED.PDOC ---
General ED Provider: Dr. EDU ZAMORA Chief Complaint: Back Pain Stated Complaint: low back pain was injected at a local pain control center 3 days ago Time Seen by Physician: 16:33 (seen with irina) Mode of Arrival: Walk-In Information Source: Patient Exam Limitations: No limitations Primary Care Provider: MARLON JOHNSON Nursing and Triage Documentation Reviewed and Agree: Yes Does patient meet sepsis criteria?: No System Inflammatory Response Syndrome: Not Applicable Sepsis Protocol: For patient's 13 years and over: Temp is 96.8 and below OR 101 and greater Pulse >90 BPM Resp >20/minute Acutely Altered Mental Status Are patient's symptoms suggestive of a new infection, such as: -Pneumonia -Skin, Soft Tissue -Endocarditis -UTI -Bone, Joint Infection -Implantable Device -Acute Abdominal Infection -Wound Infection -Meningitis -Blood Stream Catheter Infection -Unknown Musculoskeletal Complaint Exam - Back Pain Complaint/Exam Mechanism of Injury: Reports: No known trauma Onset/Duration: 3 days Symptoms Are: Still present Timing: Constant Episodes Lasting: Days Initial Severity: Moderate Current Severity: Moderate Location: Reports: Discrete Character: Reports: Aching Aggravating: Reports: None Alleviating: Reports: None Associated Signs and Symptoms: Denies: Swelling, Redness, Bruising, Fever, Weakness, Numbness, Tingling, Abdominal pain, Flank pain, Bladder incontinence, Bowel incontinence, Weight loss, Pain with weight bearing Related History: Reports: Similar episode TAD Risk Factors: Reports: None AAA Risk Factors: Reports: None Cauda Equina Risk Factors: Reports: None Epidural Abcess Risk Factors: Reports: None Related Surgical History: Reports: None Focal Tenderness: No Paraspinal Muscle Tenderness: No Paraspinal Muscle Spasm: No Scoliosis: No Lordosis: No Kyphosis: No SLR Test: Right Negative, Left Negative Hip Motion Testing Pain: Right Negative, Left Negative Focal Weakness: Present: None Focal Sensory Loss: Present: None Gait: Present: Normal Differential Diagnoses: Renal Colic Review of Systems - Review Of Systems Constitutional: Reports: No symptoms Eyes: Reports: No symptoms Ears, Nose, Mouth, Throat: Reports: No symptoms Respiratory: Reports: No symptoms Cardiac: Reports: No symptoms GI: Reports: No symptoms : Reports: No symptoms Musculoskeletal: Reports: Back pain Skin: Reports: No symptoms Neurological: Reports: No symptoms Endocrine: Reports: No symptoms Hematologic/Lymphatic: Reports: No symptoms All Other Systems: Reviewed and Negative Past Medical History - Past Medical History Previously Healthy: Yes Endocrine: Reports: None Cardiovascular: Reports: Hypertension Respiratory: Reports: None Hematological: Reports: None Gastrointestinal: Reports: None Genitourinary: Reports: None Neuro/Psych: Reports: Depression Musculoskeletal: Reports: Gout Cancer: Reports: None Other Pertinent Past Medical History: obesity - Surgical History General Surgical History: Reports: Unknown - Family History Family History: Reports: Unknown - Social History Smoking Status: Former smoker Hx Substance Use: No Alcohol Screening: None Physical Exam - Physical Exam Appearance: Well-appearing, No pain distress, Well-nourished Eyes: YONG, EOMI, Conjunctiva clear ENT: Ears normal, Nose normal, Oropharynx normal Respiratory: Airway patent, Breath sounds clear, Breath sounds equal, Respirations nonlabored Cardiovascular: RRR, Pulses normal, No rub, No murmur GI/: Soft, Nontender, No masses, Bowel sounds normal, No Organomegaly Musculoskeletal: Normal strength, ROM intact, No edema, No calf tenderness Skin: Warm, Dry, Normal color Neurological: Sensation intact, Motor intact, Reflexes intact, Cranial nerves intact, Alert, Oriented Psychiatric: Affect appropriate, Mood appropriate Critical Care Note - Critical Care Note Total Time (mins): 0 Course - Course Vital Signs: Temp Pulse Resp BP Pulse Ox 06/02/19 16:32 99.9 F H 96 H 20 158/101 H 98 Departure - Departure Time of Disposition: 16:57 Disposition: HOME SELF-CARE Discharge Problem: Low back pain Qualifiers: Chronicity: acute Back pain laterality: unspecified Sciatica presence: without sciatica Qualified Code(s): M54.5 - Low back pain Instructions: Acute Low Back Pain (ED) Condition: Good Pt referred to PMD for follow-up: Yes IPMP verified?: No Additional Instructions: Please call your Family Physician as soon as possible to schedule a follow-up appointment. Allergies/Adverse Reactions: Allergies Penicillins Adverse Reaction (Verified 06/02/19 16:35) Unknown childhood allergy Sulfa (Sulfonamide Antibiotics) Adverse Reaction (Verified 06/02/19 16:35) Unknown childhood allergy Home Medications: Ambulatory Orders Multivitamin/Iron/Folic Acid [Multi Complete-Iron Tablet] 1 each PO DAILY Gabapentin 600 mg PO DAILY 11/13/18 Hydrocodone/Acetaminophen [Hydrocodone-Acetamin 10-325 mg] 1 tab PO TID PRN Metoprolol Tartrate 50 mg PO BID 03/22/19 Sitagliptin Phosphate [Januvia] 100 mg PO DAILY 10 Days #10 tablet 03/24/19 Hydrochlorothiazide 25 mg PO DAILY 06/02/19
[2019-06-02] MEDS ORDERED: MORPHINE 2 MG/ML SYRINGE IM STA (17:07)
[2019-06-02] MEDS ORDERED: ZOFRAN 4 MG/2 ML IM STA (17:08)
== END 2019-06-02 17:39 | disposition home or self-care (01) ==
LOC: ED 16:32
DX: M54.5 Low back pain (principal)
CPT/HCPCS: 96372; 99282